=== PATIENT | female | born 1950 | race Caucasian/White ===

== ENCOUNTER 2017-09-25 14:53 | Inpatient (IN) | payer MEDICARE ==
[~2017-09-25] VITALS: Ht 160 cm; Wt 49.2 kg
[2017-09-25] MEDS ORDERED: METHYLPREDNISOLONE SOD SUCC 125 MG/2ML VIAL IV ONE (15:15)
[2017-09-25] MEDS ORDERED: DIPHENHYDRAMINE HCL INJ 50 MG/ML VIAL IV PRN (15:15)
[2017-09-25 16:26] LABS: BASOPHILS # (AUTO) 0.1 (0.0-0.1); BASOPHILS % 0.4 % (0.0-1.0); EOSINOPHILS # (AUTO) 0.2 (0.0-0.4); EOSINOPHILS % 0.7 % (0.0-6.0); HEMATOCRIT 38.2 % (34.2-44.1); HEMOGLOBIN 12.6 g/dL (12.0-16.0); LYMPHOCYTES % 65.6 % (18.0-39.1); MEAN CORPUSCULAR HEMOGLOBIN 29.4 pg (28-32); MEAN CORPUSCULAR VOLUME 89.3 fL (81-99); MONOCYTES # (AUTO) 0.8 (0.2-0.8); MONOCYTES % 3.5 % (4.4-11.3); NEUTROPHILS # (AUTO) 6.3 (2.1-6.9); NEUTROPHILS % 29.5 % (38.7-80.0); PLATELET COUNT 380 x10e3/uL (140-360); RED BLOOD COUNT 4.28 x10e6/uL (3.6-5.1); RED CELL DISTRIBUTION WIDTH 12.6 % (11.7-14.4)
[2017-09-25] MEDS ORDERED: MORPHINE SULFATE 2 MG/ML SYR IV STA ×3 (16:28→21:06)
[2017-09-25 16:37] LABS: INR 1.05; PROTHROMBIN TIME 12.9 seconds (11.9-14.5)
[2017-09-25 16:38] LABS: PARTIAL THROMBOPLASTIN TIME 24.7 seconds (23.8-35.5)
[2017-09-25 16:47] LABS: ALANINE AMINOTRANSFERASE 8 IU/L (0-55); ALBUMIN 3.9 g/dL (3.5-5.0); ALBUMIN/GLOBULIN RATIO 1.4 (0.8-2.0); ALKALINE PHOSPHATASE 52 IU/L (40-150); ANION GAP 17.6 mmol/L (8-16); BLOOD UREA NITROGEN 12 mg/dL (7-26); BUN/CREATININE RATIO 11 (6-25); CALCIUM 9.1 mg/dL (8.4-10.2); CARBON DIOXIDE 18 mmol/L (22-29); CHLORIDE 99 mmol/L (98-107); CREATINE KINASE 47 IU/L (29-168); CREATININE, SERUM 1.09 mg/dL (0.57-1.11); EST GLOMERULAR FILTRATION RATE 50 ML/MIN (60-); GLUCOSE 114 mg/dL (74-118); POTASSIUM 3.6 mmol/L (3.5-5.1); SODIUM 131 mmol/L (136-145)
[2017-09-25] MEDS ORDERED: MORPHINE SULFATE 4 MG/ML SYR IV ONE (17:00)
--- NOTE | 2017-09-25 17:01 | Diagnostic Imaging Report ---
EXAMINATION: PA and lateral views of the chest. COMPARISON: None CLINICAL HISTORY: Right lung upper lobe wheezing DISCUSSION: Lines/tubes: None. Lungs: The lungs are well inflated and clear. There is no evidence of pneumonia or pulmonary edema. Pleura: There is no pleural effusion or pneumothorax. Heart and mediastinum: Cardiomediastinal silhouette is unremarkable. Pulmonary vasculature is normal. Bones and soft tissues: No acute bony abnormalities. Degenerative changes in the thoracic spine IMPRESSION: No acute cardiopulmonary abnormalities. Signed by: Dr. Pavan Khalil M.D. on 09/25/2017 4:58 PM
[2017-09-25 17:06] LABS: THYROID STIMULATING HORMONE 0.973 uIU/mL (0.350-4.940)
[2017-09-25 17:44] LABS: EOSINOPHILS % (MANUAL) 1 % (0-7); LYMPHOCYTES % (MANUAL) 62 % (19-48); MONOCYTES % (MANUAL) 3 % (3.4-9.0); NEUTROPHILS % (MANUAL) 33 % (40-74); PLATELET ESTIMATE ADEQUATE; PLATELET MORPHOLOGY COMMENT NORMAL; RBC MORPHOLOGY COMMENT NORMAL
[2017-09-25] MEDS ORDERED: SODIUM CHLORIDE 0.9% 1000ML 1,000 ML IV SCH (19:15)
[2017-09-25] MEDS ORDERED: DIPHENHYDRAMINE HCL INJ 50 MG/ML VIAL IV ONE (19:15)
[2017-09-25 19:57] LABS: BILIRUBIN,URINE 1+ (NEGATIVE); CLARITY,URINE HAZY (CLEAR); COLOR,URINE YELLOW (YELLOW); KETONES,URINE NEGATIVE (NEGATIVE); LEUKOCYTE ESTERASE ,URINE TRACE (NEGATIVE); PROTEIN,URINE DIPSTICK NEGATIVE (NEGATIVE); URINE UROBILINOGEN 0.2 mg/dL (0.2 - 1)
[2017-09-25 20:00] LABS: NITRITE,URINE POSITIVE (NEGATIVE)
[2017-09-25] MEDS ORDERED: SODIUM CHLORIDE 0.9% 500ML 500 ML IV ONE (20:00)
[2017-09-25 20:15] LABS: BACTERIA,URINE MANY /HPF; EPITHELIAL CELLS,URINE FEW /LPF
--- NOTE | 2017-09-25 20:23 | Diagnostic Imaging Report ---
EXAM: CT CHEST W INDICATION: Lump on neck, firm nodule right upper apex concerning for [place] tumor COMPARISON: None TECHNIQUE: Multidetector CT scanning of the chest was performed. Coronal and sagittal multiplanar reformations were obtained. Routine protocol performed. IV Contrast: 100 cc Isovue-370 CTDIvol has been reviewed. It is below the limits set by the Radiation Protocol Committee (RPC). FINDINGS: LUNGS AND AIRWAYS: The trachea and major bronchi are unremarkable. No consolidations or edema. Mild paraseptal emphysematous changes at the lung apices. PLEURA: No effusions or pneumothorax. HEART, MEDIASTINUM, VESSELS: The heart is within normal size limits. No abnormal pericardial effusion. No thoracic aortic aneurysm. No mediastinal mass or lymphadenopathy. UPPER ABDOMEN: Cholecystectomy. MUSCULOSKELETAL: No acute findings. IMPRESSION: No evidence of a Pancoast tumor. If this is a palpable superficial abnormality, consider ultrasound for further evaluation or perhaps if this is higher up on the neck and out of field of view, consider CT of the neck with palpable marker. Signed by: Dr. Lorena Cartwright M.D. on 09/25/2017 8:19 PM
[2017-09-25] MEDS ORDERED: MORPHINE SULFATE 2 MG/ML SYR IV PRN (20:45)
--- OUTSIDE RECORDS SUMMARY | 2017-09-25 20:56 | XMS REPORT ---
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 Allergies, Adverse Reactions, Alerts This patient has no known allergies or adverse reactions. Medications This patient has no known medications. Results Test Description Test Time Test Comments Text Results Atomic Results Result Comments CHEST 2 VIEWS [facility] [address] [id number] Patient Name: CASSIDY DAVIS MR #: [id number] : 1950 Age/Sex: 67/F Req # : [id number] Adm Physician: Ordered by: KAREN NGO [employer]ING Report #: [id number] Location: ER Room/Bed: Procedure: [id number] 0019 DX/CHEST 2 VIEWS Exam Date: 09/25/17 Exam Time : 1635 REPORT STATUS: Signed EXAMINATION: PA and lateral views of the chest. COMPARISON: None CLINICAL HISTORY: Right lung upper lobe wheezing DISCUSSION: Lines/tubes: None. Lungs: The lungs are well inflated and clear. There is no evidence of pneumonia or pulmonary edema. Pleura: There is no pleural effusion or pneumothorax. Heart and mediastinum: Cardiomediastinal silhouette is unremarkable. Pulmonary vasculature is normal. Bones and soft tissues: No acute bony abnormalities. Degenerative changes in the thoracic spine IMPRESSION: No acute cardiopulmonary abnormalities. Signed by: Dr. Haydee Khalil M.D. on 09/25/2017 4:58 PM Dictated By: HAYDEE KHALIL MD 57 Transcribed By : SELVIN on 09/25/171657 COPY TO: KAREN NGO [employer] CT [address] [address] Patient Name: CASSIDY DAVIS MR #: [id number] : 1950 Age/Sex: 67/F Req # : [id number] Adm Physician: Ordered by: KAREN NGO NP Report #: [id number] Location: ER Room/Bed: Procedure: [id number] 0014 CT/CT CHEST W Exam Date: 09/25/17 Exam Time: 1935 REPORT STATUS: Signed EXAM: CT CHEST W INDICATION: Lump on neck , firm nodule right upper apex concerning for [place] tumor COMPARISON: None TECHNIQUE: Multidetector CT scanning of the chest was performed. Coronal and sagittal multiplanar reformations were obtained. Routine protocol performed. IV Contrast: 100 cc Isovue-370 CTDIvol has been reviewed. It is below the limits set by the Radiation Protocol Committee (RPC). FINDINGS : LUNGS AND AIRWAYS: The trachea and major bronchi are unremarkable. No consolidations or edema. Mild paraseptal emphysematous changes at the lung apices. PLEURA: No effusions or pneumothorax. HEART, MEDIASTINUM, VESSELS: The heart is within normal size limits. No abnormal pericardial effusion. No thoracic aortic aneurysm. No mediastinal mass or lymphadenopathy. UPPER ABDOMEN: Cholecystectomy. MUSCULOSKELETAL: No acute findings. IMPRESSION: No evidence of a Pancoast tumor. If this is a palpable superficial abnormality, consider ultrasound for further evaluation or perhaps if this is higher up on the neck and out of field of view, consider CT of the neck with palpable marker. Signed by: Dr. Fabiola Gonzalez M.D. on 09/25/2017 8:19 PM Dictated By: FABIOLA GONZALEZ MD 18 Transcribed By : SELVIN on 09/25/172018 COPY TO: KAREN NGO NP
[2017-09-25] MEDS ORDERED: RANEXA500 MG PO (21:23)
[2017-09-25] MEDS ORDERED: METFORMIN HCL500 MG PO (21:23)
[2017-09-25] MEDS ORDERED: DICYCLOMINE HCL20 MG PO (21:32)
[2017-09-25] MEDS ORDERED: PANTOPRAZOLE SO40 MG PO (21:32)
[2017-09-25] MEDS ORDERED: SPIRIVA18 MCG INH (21:32)
[2017-09-25] MEDS ORDERED: ISOSORBIDE MONO30 MG PO (21:32)
[2017-09-25] MEDS ORDERED: NITROGLYCERIN0.4 MG SL (21:32)
[2017-09-25] MEDS ORDERED: VENLAFAXINE H37.5 M2 PO (21:32)
[2017-09-25] MEDS ORDERED: FLUTI (21:32)
[2017-09-25] MEDS ORDERED: METOPROLOL TART25 MG PO (21:32)
[2017-09-25] MEDS ORDERED: SYMBICORT 16010.2 GM (21:32)
[2017-09-25] MEDS ORDERED: ATORVASTATIN CA20 MG PO (21:32)
[2017-09-25] MEDS ORDERED: LEVOTHYROXINE75 MCG PO (21:32)
[2017-09-25] MEDS ORDERED: TOPIRAMATE100 MG PO (21:32)
[2017-09-25 22:17] VITALS: BP 141/71
[2017-09-25] MEDS ORDERED: NITROGLYCERIN 0.4 MG SUBL SL SCH (23:30)
[2017-09-26] VITALS (8 sets, daily range): BP systolic 97–159; BP diastolic 55–78
[2017-09-26] MEDS: TRAZODONE HCL 50 MG TAB PO PRN (00:46)
[2017-09-26] MEDS ORDERED: SODIUM CHLORIDE 0.9% 50ML 50 ML ONE ×2 (01:26→19:36)
[2017-09-26] MEDS ORDERED: IOPAMIDOL 370 MG/ML 200 ML INFUS..BTL INJ ONE ×2 (01:27→19:37)
[2017-09-26 06:08] LABS: BASOPHILS % 0.1 % (0.0-1.0); HEMOGLOBIN 9.9 g/dL (12.0-16.0); LYMPHOCYTES # (AUTO) 7.4 (1.0-3.2); LYMPHOCYTES % 50.6 % (18.0-39.1); MEAN CORPUSCULAR HEMOGLOBIN 29.8 pg (28-32); MEAN CORPUSCULAR HGB CONC 34.1 g/dL (31-35); MEAN CORPUSCULAR VOLUME 87.3 fL (81-99); MONOCYTES # (AUTO) 0.7 (0.2-0.8); MONOCYTES % 5.1 % (4.4-11.3); NEUTROPHILS # (AUTO) 6.4 (2.1-6.9); NEUTROPHILS % 43.7 % (38.7-80.0); PLATELET COUNT 243 x10e3/uL (140-360); RED BLOOD COUNT 3.32 x10e6/uL (3.6-5.1); RED CELL DISTRIBUTION WIDTH 12.6 % (11.7-14.4)
[2017-09-26 06:29] LABS: ALANINE AMINOTRANSFERASE 7 IU/L (0-55); ALBUMIN 3.2 g/dL (3.5-5.0); ALBUMIN/GLOBULIN RATIO 1.7 (0.8-2.0); ALKALINE PHOSPHATASE 46 IU/L (40-150); BLOOD UREA NITROGEN 13 mg/dL (7-26); BUN/CREATININE RATIO 14 (6-25); CALCIUM 8.1 mg/dL (8.4-10.2); CARBON DIOXIDE 17 mmol/L (22-29); CHLORIDE 106 mmol/L (98-107); CREATININE, SERUM 0.91 mg/dL (0.57-1.11); EST GLOMERULAR FILTRATION RATE > 60 ML/MIN (60-); GLUCOSE 86 mg/dL (74-118); SODIUM 133 mmol/L (136-145)
[2017-09-26] MEDS: ONDANSETRON HCL INJ 2 MG/ML VIAL IV PRN ×2 (07:23→14:14)
[2017-09-26] MEDS: MORPHINE SULFATE 2 MG/ML SYR IV PRN ×6 (07:23→19:31)
[2017-09-26] MEDS ORDERED: DEXTROSE 50% SYRINGE 50 ML IV PRN (08:45)
[2017-09-26] MEDS: BUDESONIDE/FORMOTEROL 160/4.5MCG INHALER INH SCH (09:00)
[2017-09-26] MEDS ORDERED: VENLAFAXINE HCL 37.5 MG PO SCH (09:00)
[2017-09-26] MEDS ORDERED: PANTOPRAZOLE SOD 40 MG TABEC PO SCH (09:00)
[2017-09-26] MEDS: TIOTROPIUM 18 MCG INH POWDER INH SCH (09:00)
[2017-09-26] MEDS ORDERED: VENLAFAXINE HCL 37.5 MG TAB PO SCH (09:00)
[2017-09-26] MEDS: DICYCLOMINE HCL 20 MG TAB PO SCH ×3 (09:00→22:49)
[2017-09-26] MEDS: METOPROLOL TARTRATE 25 MG TAB PO SCH ×2 (09:01→16:50)
[2017-09-26] MEDS: RANOLAZINE 500 MG TABSR PO SCH ×2 (09:01→16:51)
[2017-09-26] MEDS: VENLAFAXINE HCL 37.5MG XR CAP PO SCH (09:01)
[2017-09-26] MEDS: ISOSORBIDE MONONITRATE 30 MG TAB CR PO SCH (09:01)
[2017-09-26] MEDS: LEVOTHYROXINE SODIUM 75 MCG TAB PO SCH (09:02)
[2017-09-26] MEDS: TOPIRAMATE 100 MG TAB PO SCH ×2 (09:02→16:51)
[2017-09-26 11:12] LABS: BAND NEUTROPHILS % (MANUAL) 1 %; LYMPHOCYTES % (MANUAL) 51 % (19-48); MONOCYTES % (MANUAL) 2 % (3.4-9.0); NEUTROPHILS % (MANUAL) 46 % (40-74); PLATELET ESTIMATE ADEQUATE; PLATELET MORPHOLOGY COMMENT NORMAL; RBC MORPHOLOGY COMMENT NORMAL
[2017-09-26] MEDS ORDERED: CEFTRIAXONE SOD 1 GM/NS 50 ML 50 ML IV SCH (12:00)
[2017-09-26] MEDS: AMLODIPINE BESYLATE 10 MG TAB PO SCH (12:30)
[2017-09-26] MEDS: CEFTRIAXONE SOD 1 GM VIAL IV SCH (12:48)
[2017-09-26] MEDS: INSULIN REGULAR, HUMAN 100 UNIT/1 ML 3ML VIAL SQ SCH ×3 (14:17→22:50)
--- NOTE | 2017-09-26 15:23 | History and Physical ---
PRIMARY CARE PROVIDER: Dr. Mary Kate Lutz. CHIEF COMPLAINT: Right neck pain, dysphagia, unable to keep food down, and a 60-pound weight loss. HISTORY OF PRESENT ILLNESS: Ms. Ramos is a 67-year-old lady who presents with 60 pounds of weight loss in the last 3 months along with enlarging painful right neck mass at the base of the neck with pain radiating up into the right side of her head. She feels like she is choking as a result of this. There seems to be pressure. She is having difficulty swallowing. She does have a history of esophageal strictures and has had previous dilations by GI and she has noted 60 pounds of weight loss in the last 3 to 4 months. REVIEW OF SYSTEMS: She denies fever, chills. She has had significant weight loss. She denies sinus congestion or sore throat. She denies chest pain or palpitations. She denies shortness of breath, wheezing, or cough. She has right neck pain radiating to the head. She denies abdominal pain, nausea, vomiting, or melena. She denies dysuria or flank pain. She denies rash or pruritus. She denies joint pain or swelling. She has a headache and has had some vertigo. She denies loss of consciousness. She denies depression, agitation, homicide or suicidal ideation. She is a smoker. PAST MEDICAL HISTORY: Significant for longstanding hypertension, type 2 diabetes, coronary artery disease, COPD, and depression. MEDICATIONS: Include; 1. Lipitor 40 mg at bedtime. 2. Symbicort inhaler twice daily. 3. Bentyl 20 mg 3 times a day. 4. Imdur 60 mg p.o. daily. 5. Levothyroxine 75 mcg daily. 6. Metoprolol 25 mg twice daily. 7. Nitroglycerin as needed. 8. Protonix 40 mg twice a day before meals. 9. Ranexa 1000 mg twice daily. 10. Spiriva 1 cap inhaled daily. 11. Topamax 100 mg twice daily. 12. Venlafaxine ER 37.5 mg daily. 13. Metformin 500 mg twice a day. ALLERGIES: SHE HAS A STATED ALLERGY TO LATEX, NEFAZODONE, AND IODINE CONTRAST ORAL AND IV. FAMILY HISTORY: Significant for hypertension and diabetes. SOCIAL HISTORY: The patient is . Vincentian is her primary language. She is a current daily smoker. She drinks rarely. She does not use illegal drugs and she is generally independently functioning. PHYSICAL EXAM: PSYCHIATRIC: She is alert and oriented times 3 with normal mood and affect. CONSTITUTIONAL: She has a normal body habitus. She is in no acute distress. VITAL SIGNS: Blood pressure 159/78, pulse 70 and regular, respiratory rate 12, O2 sat 100% on room air, temperature 96.3. HEENT: Her head is atraumatic. Her eyes are anicteric with clear conjunctivae. Ears and nares are without erythema or discharge. Oropharynx is clear. NECK: Supple. She has a palpable firm fixed tender mass at the base of the right neck in the supraclavicular fossa. It is approximately 3 cm in diameter. CARDIOVASCULAR: Her heart has a regular rate rhythm without murmur or extra heart sound. She has no carotid bruits. She has no peripheral edema. She has palpable dorsal pedal pulses. RESPIRATORY: Lungs are clear to auscultation and percussion with normal respiratory effort. GASTROINTESTINAL: Her abdomen is soft without organomegaly, masses, or tenderness. She has normal bowel sounds present. CUTANEOUS: Her skin is warm and dry to touch with no rash or skin breakdown. MUSCULOSKELETAL: Her joints are in normal alignment without erythema or swelling. She has no calf tenderness. NEUROLOGIC: Exam is nonfocal with intact cranial nerves and no motor or sensory deficits. DIAGNOSTIC STUDIES: Chest x-ray and CT chest both have no evidence of disease. Her UA has 6 to 10 white cells with many bacteria. TSH is 0.973. Troponin less than 0.001. BNP 34.9. Chemistry profile shows normal electrolytes except for sodium of 131, potassium 3.6, chloride 99, CO2 of 18, glucose 114, creatinine 1.09, BUN 12 for a GFR of 50. Calcium is 9.1. After overnight hydration, electrolytes are improved. Sodium is 133. Her CO2 is 17. Creatinine is 0.91, BUN 13 for a normal GFR. Glucose is 86. Calcium 8.1. Transaminases, bilirubin and alk phos are normal. CBC shows a white count of 21.2 with 30% neutrophils, 67% lymphocytes, and 4% monocytes. Hemoglobin 12.6, hematocrit 38.2, and platelet count 380,000. Again after hydration overnight, her CBC shows a white count of 14.6 with 46% neutrophils, 1% band forms, 51% lymphocytes, 2% monocytes, hemoglobin 9.9, hematocrit 29.0, which is a significant drop and platelet count 243,000. Coags are normal. IMPRESSION AND PLAN 1. Neck mass with 60-pound weight loss. We will obtain CT scan of the neck with and without contrast and we will consult ear, nose, and throat as well as hematology-oncology for further evaluation. 2. Leukocytosis with lymphocytic predominance and anemia that is normocytic. We will check iron studies, retic count, and hematology has been consulted. 3. Urinary tract infection. We will start intravenous Rocephin empirically. 4. Hyponatremia. The patient received IV steroids. We will monitor her sodium level. 5. Hypertension that is uncontrolled with coronary artery disease. We will continue the patient's metoprolol and Imdur and add Norvasc for better blood pressure control. 6. Type 2 diabetes. We will hold metformin in view of the contrast studies and use sliding scale insulin for now. 1. Chronic obstructive pulmonary disease. Patient will receive routine neb treatments. 2. For prophylaxis, the patient is on sequential compressive devices for deep venous thrombosis prophylaxis and Protonix for gastrointestinal prophylaxis. Sixty minutes were spent on this history and physical. Job#: [id number] JACQUELINE
[2017-09-26] MEDS ORDERED: METHYLPREDNISOLONE SOD SUCC 125 MG/2ML VIAL IV ONE (16:30)
[2017-09-26] MEDS ORDERED: DIPHENHYDRAMINE HCL 25 MG CAP PO ONE (16:30)
[2017-09-26] MEDS: PANTOPRAZOLE SOD 40 MG TABEC PO SCH (16:30)
[2017-09-26] MEDS ORDERED: DIPHENHYDRAMINE HCL INJ 50 MG/ML VIAL IV ONE (19:30)
--- NOTE | 2017-09-26 20:42 | Diagnostic Imaging Report ---
History: Nodule in the right upper apex, concern for pancoast tumor Comparison studies: None Technique: Axial, coronal and sagittal images from the skull base to the thoracic inlet. Coronal and sagittal images reconstructed from the axial data. Intravenous contrast: 100 cc of Omnipaque 300. Findings: Airway: Patent. Soft tissues: No abnormalities. Masses: None. Lymph nodes: No radiographically significant adenopathy. Vessels: Arteries and veins are patent. Glands (thyroid, parotid and submandibular): Normal in size and symmetric. No masses. Orbits: No abnormalities. Paranasal sinuses: Clear. Temporal bones: No abnormalities. Skull base and facial bones: Intact. Cervical spine: No abnormalities IMPRESSION: 1. No abnormalities. 2. No Pancoast tumor. Signed by: Dr. Mike Moore M.D. on 09/26/2017 8:38 PM
[2017-09-26] MEDS: ATORVASTATIN 20 MG TAB PO SCH (22:49)
[2017-09-27] VITALS (7 sets, daily range): BP systolic 104–138; BP diastolic 56–73
[2017-09-27] MEDS: CEFTRIAXONE SOD 1 GM VIAL IV SCH ×2 (01:57→12:19)
[2017-09-27 06:50] LABS: BASOPHILS % 0.2 % (0.0-1.0); HEMATOCRIT 30.8 % (34.2-44.1); HEMOGLOBIN 10.7 g/dL (12.0-16.0); LYMPHOCYTES # (AUTO) 8.7 (1.0-3.2); LYMPHOCYTES % 50.6 % (18.0-39.1); MEAN CORPUSCULAR HEMOGLOBIN 30.5 pg (28-32); MEAN CORPUSCULAR HGB CONC 34.7 g/dL (31-35); MEAN CORPUSCULAR VOLUME 87.7 fL (81-99); MONOCYTES # (AUTO) 0.6 (0.2-0.8); MONOCYTES % 3.3 % (4.4-11.3); NEUTROPHILS # (AUTO) 7.8 (2.1-6.9); NEUTROPHILS % 45.4 % (38.7-80.0); PLATELET COUNT 279 x10e3/uL (140-360); RED BLOOD COUNT 3.51 x10e6/uL (3.6-5.1); RED CELL DISTRIBUTION WIDTH 12.9 % (11.7-14.4)
[2017-09-27 07:25] LABS: % IRON SATURATION 29 % (15-50); IRON 71 ug/dL (50-170); TOTAL IRON BINDING CAPACITY 248 ug/dL (261-478); TRANSFERRIN 177 mg/dL (180-382)
[2017-09-27 07:30] LABS: ANION GAP 11.8 mmol/L (8-16); BLOOD UREA NITROGEN 8 mg/dL (7-26); BUN/CREATININE RATIO 10 (6-25); CALCIUM 8.7 mg/dL (8.4-10.2); CARBON DIOXIDE 22 mmol/L (22-29); CHLORIDE 105 mmol/L (98-107); EST GLOMERULAR FILTRATION RATE > 60 ML/MIN (60-); GLUCOSE 86 mg/dL (74-118); POTASSIUM 3.8 mmol/L (3.5-5.1); SODIUM 135 mmol/L (136-145)
[2017-09-27] MEDS: INSULIN REGULAR, HUMAN 100 UNIT/1 ML 3ML VIAL SQ SCH ×4 (07:30→20:21)
[2017-09-27] MEDS: PANTOPRAZOLE SOD 40 MG TABEC PO SCH ×2 (07:30→17:02)
[2017-09-27] MEDS: MORPHINE SULFATE 2 MG/ML SYR IV PRN ×3 (07:35→20:15)
[2017-09-27 08:29] LABS: FOLATE 5.5 ng/mL (7.0-15.4)
[2017-09-27] MEDS: BUDESONIDE/FORMOTEROL 160/4.5MCG INHALER INH SCH (09:00)
[2017-09-27] MEDS: METOPROLOL TARTRATE 25 MG TAB PO SCH ×2 (09:00→17:02)
[2017-09-27] MEDS: VENLAFAXINE HCL 37.5MG XR CAP PO SCH (09:00)
[2017-09-27] MEDS: LEVOTHYROXINE SODIUM 75 MCG TAB PO SCH (09:00)
[2017-09-27] MEDS: ISOSORBIDE MONONITRATE 30 MG TAB CR PO SCH (09:00)
[2017-09-27] MEDS: TIOTROPIUM 18 MCG INH POWDER INH SCH (09:00)
[2017-09-27] MEDS: DICYCLOMINE HCL 20 MG TAB PO SCH ×3 (09:00→20:15)
[2017-09-27] MEDS: TOPIRAMATE 100 MG TAB PO SCH ×2 (09:00→17:02)
[2017-09-27] MEDS: AMLODIPINE BESYLATE 10 MG TAB PO SCH (09:00)
[2017-09-27] MEDS: RANOLAZINE 500 MG TABSR PO SCH ×2 (09:00→17:02)
--- NOTE | 2017-09-27 10:38 | Consultation ---
DATE OF CONSULTATION: September 27, 2017 HOSPITAL CONSULTATION HISTORY OF PRESENT ILLNESS: I was kindly asked to see this 67-year-old woman for evaluation of neck mass. The patient presented with a 60-pound weight loss over the last 3 months, and a progressively enlarging right-sided neck mass with pain radiating to the right side of her head. She has been unable to swallow because of pain radiating from this region. She has a history of esophageal stricture, which require esophageal dilation approximately 1 time per year. She reports these symptoms are significantly different than her previous episodes of esophageal stricture. She reports in February of 2017, she first noticed the neck mass and describes it as approximately the size of her pinky fingernail, and has slowly grown in size. She reports generalized aches and pains, and "pains in my bones". Also, reports a sensation of lightheadedness, but denies ear fullness, hearing loss or tinnitus. Her workup to date with CT scan of the chest and neck showed no evidence of mass lesion. Her history of present illness, past medical history and past surgical history was reviewed in detail in the chart. PHYSICAL EXAMINATION HEENT: The tympanic membranes and external auditory canals are unremarkable. Intranasal examination is normal. Oral cavity examination is normal. Posterior pharyngeal wall is unremarkable. Anterior neck bilaterally shows no evidence of adenopathy. There is a roughly 2.5 to 3 cm area of tenderness and possible muscle spasm at the level of the trapezius near the clavicle in the right posterior neck. ASSESSMENT 1. Unlikely that the right neck mass is the etiology for the 60-pound weight loss given that she has a normal computerized tomography scan of the chest and neck. 2. Unclear etiology for the palpable region in the right neck with no anatomic correlation to computerized tomography scan of the neck and chest. Given her symptoms of pain, this may be an area of muscle spasm or small neuroma not being able to seen on computerized tomography. PLAN 1. Ultrasound of the neck with consideration of ultrasound-guided needle aspiration if a mass can be identified on ultrasound. 2. Workup of this neck mass can be performed as an outpatient when she is cleared from other physicians on the case. She is also cleared for discharge from otolaryngology standpoint. Job#: [id number] RI
[2017-09-27] MEDS: ONDANSETRON HCL INJ 2 MG/ML VIAL IV PRN (12:20)
[2017-09-27] MEDS: ALBUTEROL/IPRATROPIUM 3 ML NEB NEB SCH ×2 (13:22→20:30)
--- NOTE | 2017-09-27 16:04 | Diagnostic Imaging Report ---
PROCEDURE: SOFT TISSUE HEAD/NECK US COMPARISON: CT soft tissue neck 09/26/2017. CT chest 09/25/2017. INDICATIONS:RIGHT INFERIOR NECK MASS AT JUNCTION TRAPEZIUS AND CLAVICLE TECHNIQUE: Transverse and longitudinal griffin-scale sonographic images of the bilateral neck with focus at the right inferior neck at the junction of the clavicle and trapezius. FINDINGS: The area of palpation in the right neck corresponds to a well corticated/calcified lesion. When reviewing CT neck and CT chest, this corresponds with a prominent right cervical rib. There is also a left cervical rib which is not as prominent and does not extend as far. CONCLUSION: Area of palpation corresponds with a cervical rib. Dictated by: Bam Warren M.D. on 09/27/2017 at 16:04 Electronically approved by: Bam Warren M.D. on 09/27/2017 at 16:04 Dictated by: Bam Warren M.D. on 09/27/2017 at 16:05 Electronically approved by: Bam Warren M.D. on 09/27/2017 at 16:05
--- NOTE | 2017-09-27 16:36 | Operative Report ---
DATE OF PROCEDURE: September 27, 2017 REFERRING PHYSICIAN: Dr. Sherrie Mcmahon PROCEDURE PERFORMED: Esophagogastroduodenoscopy with esophageal dilatation and biopsies. INDICATIONS FOR PROCEDURE: Dysphagia to solids, weight loss. MEDICATION: Patient was done under MAC. Please see anesthesiologist's note. PROCEDURE: With the patient in the left lateral decubitus position, the flexible fiberoptic Olympus gastroscope was introduced into the esophagus under direct visualization without any difficulty. There was some patchy erythema noted in the distal esophagus. A minute nodule was noted at the GE junction, and that was biopsied. The esophagus was dilated to size 54-E[place]ian Young. The scope was then advanced with ease into the stomach, traversing a small hiatal hernia. Mucosa overlying the antrum and the body revealed some patchy intense erythema and mild to moderate edema, and biopsies were obtained and sent to stain for H. pylori. The pylorus was of normal contour and shape. It was intubated with ease, and the scope was advanced all the way to the 2nd portion of the duodenum. The scope was then withdrawn slowly. Mucosa overlying the proximal 2nd portion and the duodenal bulb appeared to be within normal limits. The scope was then withdrawn back into the stomach and retroflexed. Mucosa overlying the fundus and the cardia appeared to be within normal limits. The scope was then straightened out. The stomach was decompressed. Scope was subsequently withdrawn. Patient tolerated the procedure well. IMPRESSION 1. Mild distal esophagitis. 2. Nodule at gastroesophageal junction, biopsied. 3. Esophagus dilated to size 54-E[place]ian Young. 4. Small hiatal hernia. 5. Gastritis, biopsied. Biopsies sent to stain for H. pylori. PLAN: Follow up histology. Continue Protonix 40 mg 1 p.o. a.c. b.i.d. Start GI soft diet. Job#: [id number] cc:SHERRIE MCMAHON MD
[2017-09-27] MEDS ORDERED: PROPOFOL IV EMULSION 10 MG/ML 50 ML VIAL ONE (17:57)
[2017-09-27] MEDS ORDERED: MIDAZOLAM HCL 2 MG/2 ML VIAL ONE (18:20)
[2017-09-27] MEDS: ATORVASTATIN 20 MG TAB PO SCH (20:15)
[2017-09-28] VITALS: BP 117/66
[2017-09-28] MEDS: CEFTRIAXONE SOD 1 GM VIAL IV SCH ×2 (00:57→12:00)
[2017-09-28] MEDS: MORPHINE SULFATE 2 MG/ML SYR IV PRN ×5 (01:03→23:49)
[2017-09-28 04:00] VITALS: BP 141/72
[2017-09-28] MEDS: ALBUTEROL/IPRATROPIUM 3 ML NEB NEB SCH ×3 (07:00→20:20)
[2017-09-28 07:42] VITALS: BP 139/74
[2017-09-28] MEDS: BUDESONIDE/FORMOTEROL 160/4.5MCG INHALER INH SCH (07:44)
[2017-09-28] MEDS: TIOTROPIUM 18 MCG INH POWDER INH SCH (07:44)
[2017-09-28] MEDS: VENLAFAXINE HCL 37.5MG XR CAP PO SCH (08:53)
[2017-09-28] MEDS: DICYCLOMINE HCL 20 MG TAB PO SCH ×3 (08:53→21:44)
[2017-09-28] MEDS: ISOSORBIDE MONONITRATE 30 MG TAB CR PO SCH (08:53)
[2017-09-28] MEDS: METOPROLOL TARTRATE 25 MG TAB PO SCH ×2 (08:53→16:17)
[2017-09-28] MEDS: AMLODIPINE BESYLATE 10 MG TAB PO SCH (08:53)
[2017-09-28] MEDS: PANTOPRAZOLE SOD 40 MG TABEC PO SCH ×2 (08:53→16:16)
[2017-09-28] MEDS: TOPIRAMATE 100 MG TAB PO SCH ×2 (08:54→16:17)
[2017-09-28] MEDS: RANOLAZINE 500 MG TABSR PO SCH ×2 (08:54→16:17)
[2017-09-28] MEDS: ASCORBIC ACID 500 MG TAB PO SCH ×2 (08:54→16:17)
[2017-09-28] MEDS: INSULIN REGULAR, HUMAN 100 UNIT/1 ML 3ML VIAL SQ SCH ×4 (08:54→21:49)
[2017-09-28] MEDS: LEVOTHYROXINE SODIUM 75 MCG TAB PO SCH (08:54)
[2017-09-28 11:17] VITALS: BP 106/58
[2017-09-28] MEDS: ONDANSETRON HCL INJ 2 MG/ML VIAL IV PRN ×3 (11:45→23:49)
[2017-09-28 15:20] VITALS: BP 100/57
[2017-09-28] MEDS ORDERED: LIDOCAINE HCL 1% 2 ML AMP INJ ONE (17:45)
[2017-09-28] MEDS ORDERED: LIDOCAINE 1% 5ML-MPF INJ ONE (18:15)
[2017-09-28 20:00] VITALS: BP 114/69
[2017-09-28] MEDS: ATORVASTATIN 20 MG TAB PO SCH (21:44)
[2017-09-28] MEDS: TRAZODONE HCL 50 MG TAB PO PRN (21:45)
[2017-09-29] VITALS (8 sets, daily range): BP systolic 88–171; BP diastolic 56–83
[2017-09-29] MEDS: CEFTRIAXONE SOD 1 GM VIAL IV SCH ×2 (01:02→12:48)
[2017-09-29] MEDS: MORPHINE SULFATE 2 MG/ML SYR IV PRN ×6 (04:03→23:28)
[2017-09-29] MEDS ORDERED: LIDOCAINE HCL 1% LOCAL INJ 20 ML VIAL INJ NR (06:00)
[2017-09-29] MEDS: ALBUTEROL/IPRATROPIUM 3 ML NEB NEB SCH ×3 (06:00→21:10)
[2017-09-29 06:24] LABS: BASOPHILS % 0.3 % (0.0-1.0); EOSINOPHILS # (AUTO) 0.4 (0.0-0.4); EOSINOPHILS % 3.3 % (0.0-6.0); HEMATOCRIT 34.6 % (34.2-44.1); HEMOGLOBIN 11.8 g/dL (12.0-16.0); LYMPHOCYTES # (AUTO) 7.7 (1.0-3.2); LYMPHOCYTES % 60.8 % (18.0-39.1); MEAN CORPUSCULAR HEMOGLOBIN 30.3 pg (28-32); MEAN CORPUSCULAR HGB CONC 34.1 g/dL (31-35); MEAN CORPUSCULAR VOLUME 88.9 fL (81-99); MONOCYTES # (AUTO) 0.5 (0.2-0.8); MONOCYTES % 3.9 % (4.4-11.3); NEUTROPHILS # (AUTO) 3.9 (2.1-6.9); NEUTROPHILS % 31.2 % (38.7-80.0); PLATELET COUNT 266 x10e3/uL (140-360); RED BLOOD COUNT 3.89 x10e6/uL (3.6-5.1); RED CELL DISTRIBUTION WIDTH 13.2 % (11.7-14.4)
[2017-09-29 07:10] LABS: ANION GAP 12.5 mmol/L (8-16); BLOOD UREA NITROGEN 6 mg/dL (7-26); BUN/CREATININE RATIO 7 (6-25); CALCIUM 9.3 mg/dL (8.4-10.2); CARBON DIOXIDE 25 mmol/L (22-29); CHLORIDE 105 mmol/L (98-107); CREATININE, SERUM 0.88 mg/dL (0.57-1.11); EST GLOMERULAR FILTRATION RATE > 60 ML/MIN (60-); GLUCOSE 87 mg/dL (74-118); MAGNESIUM 1.4 MG/DL (1.3-2.1); PHOSPHORUS 4.6 MG/DL (2.3-4.7); POTASSIUM 3.5 mmol/L (3.5-5.1); SODIUM 139 mmol/L (136-145)
[2017-09-29 07:58] LABS: BLAST CELLS % MANUAL 2; EOSINOPHILS % (MANUAL) 3 % (0-7); LYMPHOCYTES % (MANUAL) 57 % (19-48); MONOCYTES % (MANUAL) 11 % (3.4-9.0); NEUTROPHILS % (MANUAL) 27 % (40-74)
[2017-09-29 07:59] LABS: ANISOCYTOSIS SLIGHT; HYPOCHROMASIA SLIGHT; PLATELET ESTIMATE ADEQUATE; PLATELET MORPHOLOGY COMMENT NORMAL; POIKILOCYTOSIS SLIGHT; RBC MORPHOLOGY COMMENT NORMAL; SMUDGE CELLS FEW
[2017-09-29] MEDS: BUDESONIDE/FORMOTEROL 160/4.5MCG INHALER INH SCH (09:00)
[2017-09-29] MEDS: TIOTROPIUM 18 MCG INH POWDER INH SCH (09:00)
[2017-09-29] MEDS: VENLAFAXINE HCL 37.5MG XR CAP PO SCH (09:16)
[2017-09-29] MEDS: PANTOPRAZOLE SOD 40 MG TABEC PO SCH ×2 (09:16→17:30)
[2017-09-29] MEDS: INSULIN REGULAR, HUMAN 100 UNIT/1 ML 3ML VIAL SQ SCH ×4 (09:16→21:00)
[2017-09-29] MEDS: DICYCLOMINE HCL 20 MG TAB PO SCH ×3 (09:16→20:59)
[2017-09-29] MEDS: ISOSORBIDE MONONITRATE 30 MG TAB CR PO SCH (09:17)
[2017-09-29] MEDS: RANOLAZINE 500 MG TABSR PO SCH ×2 (09:17→17:30)
[2017-09-29] MEDS: METOPROLOL TARTRATE 25 MG TAB PO SCH ×2 (09:17→17:30)
[2017-09-29] MEDS: AMLODIPINE BESYLATE 10 MG TAB PO SCH (09:17)
[2017-09-29] MEDS: LEVOTHYROXINE SODIUM 75 MCG TAB PO SCH (09:17)
[2017-09-29] MEDS: TOPIRAMATE 100 MG TAB PO SCH ×2 (09:18→17:38)
[2017-09-29] MEDS: ASCORBIC ACID 500 MG TAB PO SCH ×2 (09:18→17:38)
[2017-09-29] MEDS: ATORVASTATIN 40 MG TAB PO SCH (20:59)
[2017-09-29] MEDS ORDERED: POLYETHYLENE GLYCOL 3350 17 GM PACK PO PRN (21:45)
[2017-09-29] MEDS ORDERED: MAGNESIUM SULFATE 2GM/50ML 50 ML IV ONE (22:00)
[2017-09-29] MEDS ORDERED: SODIUM CHLORIDE 0.9% 250ML 250 ML ONE (22:28)
[2017-09-30] VITALS (7 sets, daily range): BP systolic 92–125; BP diastolic 57–72
[2017-09-30] MEDS: CEFTRIAXONE SOD 1 GM VIAL IV SCH ×2 (00:53→13:12)
[2017-09-30] MEDS: MORPHINE SULFATE 2 MG/ML SYR IV PRN ×5 (05:06→20:59)
[2017-09-30] MEDS: LEVOTHYROXINE SODIUM 75 MCG TAB PO SCH (05:46)
[2017-09-30] MEDS: ALBUTEROL/IPRATROPIUM 3 ML NEB NEB SCH ×3 (06:00→21:00)
[2017-09-30 07:12] LABS: ALANINE AMINOTRANSFERASE 7 IU/L (0-55); ALBUMIN 3.5 g/dL (3.5-5.0); ALBUMIN/GLOBULIN RATIO 1.5 (0.8-2.0); ALKALINE PHOSPHATASE 36 IU/L (40-150); ANION GAP 12.3 mmol/L (8-16); BLOOD UREA NITROGEN 6 mg/dL (7-26); BUN/CREATININE RATIO 7 (6-25); CALCIUM 9.2 mg/dL (8.4-10.2); CARBON DIOXIDE 26 mmol/L (22-29); CHLORIDE 104 mmol/L (98-107); CREATININE, SERUM 0.87 mg/dL (0.57-1.11); EST GLOMERULAR FILTRATION RATE > 60 ML/MIN (60-); GLUCOSE 81 mg/dL (74-118); MAGNESIUM 2.2 MG/DL (1.3-2.1); POTASSIUM 4.3 mmol/L (3.5-5.1); SODIUM 138 mmol/L (136-145)
[2017-09-30] MEDS: INSULIN REGULAR, HUMAN 100 UNIT/1 ML 3ML VIAL SQ SCH ×4 (07:30→21:00)
[2017-09-30] MEDS: PANTOPRAZOLE SOD 40 MG TABEC PO SCH ×2 (07:59→17:02)
[2017-09-30] MEDS: MAGNESIUM OXIDE 400 MG TAB PO SCH ×2 (09:00→17:00)
[2017-09-30] MEDS: BUDESONIDE/FORMOTEROL 160/4.5MCG INHALER INH SCH (09:00)
[2017-09-30] MEDS: TIOTROPIUM 18 MCG INH POWDER INH SCH (09:00)
[2017-09-30] MEDS: VENLAFAXINE HCL 37.5MG XR CAP PO SCH (09:18)
[2017-09-30] MEDS: DOCUSATE SODIUM 100 MG CAP PO SCH ×2 (09:18→17:02)
[2017-09-30] MEDS: DICYCLOMINE HCL 20 MG TAB PO SCH ×3 (09:18→20:59)
[2017-09-30] MEDS: TOPIRAMATE 100 MG TAB PO SCH ×2 (09:19→17:03)
[2017-09-30] MEDS: ASCORBIC ACID 500 MG TAB PO SCH ×2 (09:19→17:03)
[2017-09-30] MEDS: METOPROLOL TARTRATE 25 MG TAB PO SCH ×2 (12:49→17:00)
[2017-09-30] MEDS: ISOSORBIDE MONONITRATE 30 MG TAB CR PO SCH (12:49)
[2017-09-30] MEDS: AMLODIPINE BESYLATE 10 MG TAB PO SCH (12:50)
[2017-09-30] MEDS: RANOLAZINE 500 MG TABSR PO SCH ×2 (12:50→17:00)
[2017-09-30] MEDS ORDERED: LACTULOSE SYRUP 20 GM/30 ML UDC PO PRN (20:00)
[2017-09-30] MEDS: ATORVASTATIN 40 MG TAB PO SCH (20:59)
[2017-10-01 00:55] VITALS: BP 123/72
[2017-10-01] MEDS: MORPHINE SULFATE 2 MG/ML SYR IV PRN ×4 (01:15→16:49)
[2017-10-01] MEDS: CEFTRIAXONE SOD 1 GM VIAL IV SCH ×2 (01:15→12:22)
[2017-10-01] MEDS: LEVOTHYROXINE SODIUM 75 MCG TAB PO SCH (05:36)
[2017-10-01 06:16] VITALS: BP_SYST 123; BP_SYST 129; BP_DIAS 72; BP_DIAS 76
[2017-10-01 06:28] LABS: BASOPHILS # (AUTO) 0.1 (0.0-0.1); BASOPHILS % 0.5 % (0.0-1.0); EOSINOPHILS # (AUTO) 0.6 (0.0-0.4); EOSINOPHILS % 5.4 % (0.0-6.0); HEMATOCRIT 32.4 % (34.2-44.1); HEMOGLOBIN 10.9 g/dL (12.0-16.0); LYMPHOCYTES # (AUTO) 6.4 (1.0-3.2); MEAN CORPUSCULAR HEMOGLOBIN 30.4 pg (28-32); MEAN CORPUSCULAR HGB CONC 33.6 g/dL (31-35); MEAN CORPUSCULAR VOLUME 90.3 fL (81-99); MONOCYTES # (AUTO) 0.5 (0.2-0.8); MONOCYTES % 4.3 % (4.4-11.3); NEUTROPHILS # (AUTO) 3.5 (2.1-6.9); NEUTROPHILS % 31.4 % (38.7-80.0); PLATELET COUNT 200 x10e3/uL (140-360); RED BLOOD COUNT 3.59 x10e6/uL (3.6-5.1); RED CELL DISTRIBUTION WIDTH 13.1 % (11.7-14.4)
[2017-10-01 07:01] LABS: ANION GAP 11.9 mmol/L (8-16); BLOOD UREA NITROGEN 11 mg/dL (7-26); BUN/CREATININE RATIO 12 (6-25); CALCIUM 9.2 mg/dL (8.4-10.2); CARBON DIOXIDE 24 mmol/L (22-29); CHLORIDE 107 mmol/L (98-107); EST GLOMERULAR FILTRATION RATE > 60 ML/MIN (60-); GLUCOSE 97 mg/dL (74-118); POTASSIUM 3.9 mmol/L (3.5-5.1); SODIUM 139 mmol/L (136-145)
[2017-10-01] MEDS: ALBUTEROL/IPRATROPIUM 3 ML NEB NEB SCH ×3 (07:10→18:00)
[2017-10-01] MEDS: INSULIN REGULAR, HUMAN 100 UNIT/1 ML 3ML VIAL SQ SCH ×3 (07:30→16:26)
[2017-10-01 07:38] LABS: EOSINOPHILS % (MANUAL) 2 % (0-7); LYMPHOCYTES % (MANUAL) 69 % (19-48); MONOCYTES % (MANUAL) 3 % (3.4-9.0); NEUTROPHILS % (MANUAL) 23 % (40-74)
[2017-10-01 07:42] LABS: PLATELET ESTIMATE ADEQUATE; PLATELET MORPHOLOGY COMMENT NORMAL; RBC MORPHOLOGY COMMENT NORMAL
[2017-10-01 08:00] VITALS: BP 98/61
[2017-10-01] MEDS: PANTOPRAZOLE SOD 40 MG TABEC PO SCH ×2 (08:30→16:25)
[2017-10-01] MEDS: DICYCLOMINE HCL 20 MG TAB PO SCH ×2 (08:55→16:00)
[2017-10-01] MEDS: DOCUSATE SODIUM 100 MG CAP PO SCH ×2 (08:55→16:25)
[2017-10-01] MEDS: VENLAFAXINE HCL 37.5MG XR CAP PO SCH (08:55)
[2017-10-01] MEDS: RANOLAZINE 500 MG TABSR PO SCH ×2 (08:56→16:25)
[2017-10-01] MEDS: ASCORBIC ACID 500 MG TAB PO SCH ×2 (08:56→16:25)
[2017-10-01] MEDS: TOPIRAMATE 100 MG TAB PO SCH ×2 (08:56→16:25)
[2017-10-01] MEDS: ISOSORBIDE MONONITRATE 30 MG TAB CR PO SCH (09:00)
[2017-10-01] MEDS: METOPROLOL TARTRATE 25 MG TAB PO SCH ×2 (09:00→16:26)
[2017-10-01] MEDS: AMLODIPINE BESYLATE 10 MG TAB PO SCH (09:00)
[2017-10-01 09:21] VITALS: BP 98/61
[2017-10-01] MEDS: TIOTROPIUM 18 MCG INH POWDER INH SCH (10:52)
[2017-10-01] MEDS: BUDESONIDE/FORMOTEROL 160/4.5MCG INHALER INH SCH (10:52)
[2017-10-01 12:00] VITALS: BP 96/63
[2017-10-01 16:00] VITALS: BP 98/62
--- NOTE | 2017-10-01 16:24 | Consultation ---
DATE OF CONSULTATION: September 27, 2017 Abimbola Ramos is a 67-year-old white female who has been referred to me for evaluation of a right supraclavicular lymph node, weight loss of 60 pounds, anemia and leukocytosis. The patient had presented with weight loss and weakness. Subsequently admitted for further evaluation and treatment. SOCIAL HISTORY: History of smoking. FAMILY HISTORY: Noncontributory. ALLERGIES: REPORTED LATEX, NEFAZODONE, IODINE. MEDICATIONS: At this time. 1. Albuterol. 2. Diphenhydramine. 3. Ondansetron. 4. Morphine. 5. Atorvastatin. 6. . 7. Dicyclomine. 8. Isosorbide. 9. Levothyroxine. 10. Metoprolol. 11. Nitroglycerin. 12. Ranolazine. 13. Tiotropium. 14. Topiramate. 15. Venlafaxine. 16. Trazodone. 17. Protonix. 18. Insulin. 19. Ceftriaxone. 20. Amlodipine. REVIEW OF SYSTEMS: HEENT: Normal. CARDIAC: History of hypertension. RESPIRATORY: History of COPD. GI: Normal. : Normal. MUSCULOSKELETAL: Normal. SKIN AND BREASTS: Normal. NEUROENDOCRINE: History of diabetes. History of hypothyroidism. PHYSICAL EXAMINATION: GENERAL: A rather thin-built female. Right posterior triangle lymph node 2 cm, soft to firm. HEART: Within normal limits. LUNGS: Are clear. BREASTS: Exam normal. ABDOMEN: Obese. No hepatosplenomegaly. RECTAL EXAM: Deferred. CENTRAL NERVOUS SYSTEM: Essentially normal. LABORATORY DATA: Shows a hemoglobin of 10.7, hematocrit 30.8, white count 17,100 with lymphocytosis. Platelets 279,000. Sodium 135, potassium 3.8. Chloride 105, CO2 22, BUN 8, creatinine 0.8. Glucose 86. Bilirubin 0.3, SGOT 7, SGPT 10, alkaline phosphatase 46. IMPRESSION: 1. Anemia of chronic disease. 2. Lymphocytosis. 3. Weight loss of 60 pounds. 4. Hypertension. 5. Hyperlipidemia. 6. Chronic obstructive pulmonary disease. 7. Hypothyroidism. 8. Migraine headaches. 9. Coronary artery disease. 10. Hypoproteinemia. 11. Hypoalbuminemia. 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 13. Diabetes mellitus. 14. History of esophageal strictures. 15. Right posterior triangle neck node. PLAN: Plan is to have a biopsy of the neck node as well as a bone marrow index. Suspicion is very high that this patient may have lymphoma even though the CAT scans have not shown any lymphadenopathy. I will still do a bone marrow. Common variable immune deficiency is also a possibility since she has low immunoglobulins. I will confine myself to hematology only. I have discussed this with Dr. Mcmahon. Thank you very much for allowing me to participate in the management of this patient. On 09/28, the right posterior iliac crest aspirate and biopsy were done. I have been eager to obtain the results of the quantitation of immunoglobulins. The folic acid level in this patient is low at 5.5. B12, however, is reasonable at 323. Even though I have asked for quantitation of immunoglobulins, at the time of this dictation I still do not have the results of this. I will try to have this done at my office eventually as outpatient. The patient is also suggested folate supplement. Job#: [id number] cc:SHRERIE MCMAHON MD
[2017-10-01] MEDS ORDERED: COLACE100 M1 PO (18:48)
[2017-10-01] MEDS ORDERED: EFFEXOR XR 3737.5 MG PO (18:48)
[2017-10-01] MEDS ORDERED: MIRALAX17 GM PO (18:48)
[2017-10-01] MEDS ORDERED: CEFUROXIME250 MG PO (18:48)
[2017-10-01] MEDS ORDERED: ASCORBIC ACID500 MG PO (18:48)
[2017-10-01] MEDS ORDERED: Atorvastatin PO (18:48)
[2017-10-01] MEDS ORDERED: NORVASC10 MG PO (18:48)
[2017-10-01] MEDS ORDERED: ACETAMINOPHEN/CODEINE 300MG - 30MG TAB PO SCH (19:45)
--- NOTE | 2017-10-01 20:04 | Discharge Summary ---
PRIMARY CARE PROVIDER: Dr. Dinorah Lutz. Ms. Ramos is a 67-year-old lady who presented to the emergency department with 60 pounds of weight loss in the last 3 months along with enlarging painful right neck mass at the base of the neck with pain radiating up into the right side of her head. At that time, she felt as though she was choking. As a result of this, there seemed to be pressure. She was having difficulty swallowing. She does have a history of esophageal strictures and has had previous dilations by gastroenterology. PAST MEDICAL HISTORY: Significant for the esophageal strictures as well as longstanding hypertension, type 2 diabetes mellitus, coronary artery disease, COPD and depression. ADMITTING DIAGNOSES 1. Neck mass with 60 pound weight loss. 2. Leukocytosis with lymphocytic predominance and anemia that is normocytic. 3. Urinary tract infection. 4. Hyponatremia. 5. Hypertension that is uncontrolled with coronary artery disease. 6. Type 2 diabetes mellitus. 7. Chronic obstructive pulmonary disease. DISCHARGE DIAGNOSES 1. Neck mass with 60 pound weight loss. 2. Leukocytosis with lymphocytic predominance and anemia that is normocytic. 3. Urinary tract infection. 4. Hyponatremia. 5. Hypertension that is uncontrolled with coronary artery disease. 6. Type 2 diabetes mellitus. 7. Chronic obstructive pulmonary disease. 8. Hypomagnesemia. 9. Leukocytosis with lymphocytic predominance and normocytic anemia. CONSULTING PHYSICIANS: Dr. Armando Matson with oncology, Dr. Raffi Velez with gastroenterology and Dr. Larry Rachel with ENT. On admission, chest x-ray and CT were negative. The UA had 6-10 white cells and many bacteria, which later grew to show Klebsiella pneumoniae. Troponin was less than 0.001. B-natriuretic peptide 34.9. Creatinine 1.09. BUN 12 for a GFR of 50. CBC showed a white blood cell count of 21.2 with 30% neutrophils, 67% lymphocytes and 4% monocytes. Hemoglobin 12.6, hematocrit 38.2 and platelet count 380,000. After hydration, these counts improved. Today, on the day of discharge, sodium 139, potassium 3.9, chloride 107, CO2 of 24, BUN 11, creatinine 0.9, glucose 97, WBCs 10.9, hemoglobin 10.9, hematocrit 32.4, platelets 200,000. Neutrophils 31.4. Magnesium 2.0. Finger stick blood glucose levels 107, 92. A 12-lead EKG had shown normal sinus rhythm. During her stay, the patient had an upper endoscopy by Dr. Velez, which showed mild distal esophagitis, nodule at the gastroesophageal junction which was biopsied. The esophagus was dilated to size 54-[place] Young. Small hiatal hernia. Gastritis which was biopsied. Per Dr. Rachel's consultation note, there was roughly 2.5 to 3 cm area of tenderness and possible muscle spasm at the level of the trapezius near the clavicle in the right posterior neck. Dr. Rachel indicated that it was unlikely that the right neck mass was the etiology for the 60 pound weight loss, given that she has a normal CT scan of the chest and neck. There was unclear etiology for the palpable region in the right neck with no anatomic correlation to computerized tomography. Given her symptoms of pain, may be an area of muscle spasm or small neuroma. The patient underwent right iliac crest bone marrow biopsy as recommended by oncology on September 29. The patient is to follow up with oncology in 2-3 weeks for the bone biopsy results. REVIEW OF SYSTEMS: The patient is still somewhat sore at the right hip; however, she looks much more alert and awake, and feels better today. Her neck pain is currently 2 on a scale of 0-10. No other complaints. PHYSICAL EXAMINATION VITAL SIGNS: Temperature 96.9, heart rate 74, blood pressure 98/61 with a MAP of 73, respiratory rate 16, oxygen saturation 96%. BMI 14.12. Weight 108 pounds. GENERAL: The patient is lying supine in bed in no acute distress. LUNGS: Clear to auscultation, unlabored even respirations. HEENT: Extraocular eye movements intact. NECK: Supple. No lymphadenopathy or thyromegaly. She has a right neck mass. CARDIOVASCULAR: Regular rate and rhythm without murmur. ABDOMEN: Bowel sounds positive, soft, nontender. EXTREMITIES: Without pitting edema. No clubbing, cyanosis or marked swelling. No signs or symptoms of DVT. NEUROLOGIC: GCS 15, nonfocal. DISPOSITION: Home without home health required. No DME. Activity level as tolerated. GI soft diet. Prescriptions will be provided for cefuroxime 500 mg p.o. q.12 h. for 10 days for the Klebsiella pneumonia urinary tract infection. Tylenol No. 4 with codeine 1 to 2 tabs p.o. q.6 h. p.r.n. for pain. Ascorbic acid. Atorvastatin. Colace. MiraLAX. Scripts will be provided. Dictated by: Axel Coto, Acute Care Nurse Practitioner SHERRIE STOUT MD Job#: [id number]
== END 2017-10-01 20:18 | disposition home or self-care (01) | DRG 607 ==
LOC: ER 14:53 → EDBEDREQ 20:48 → ERHOLD 20:53 → IMCU 21:28 → OBSVTOIN 09-26 11:54 → MED/SURG2 09-28 16:10
PROVIDERS: ADMIT Internal Medicine; ATTEND Internal Medicine
PROC: 0DB78ZX Excision of Stomach, Pylorus, Via Natural or Artificial Opening Endoscopic, Diagnostic (ICD-10-PCS; 2017-09-27)
PROC: 0D758ZZ Dilation of Esophagus, Via Natural or Artificial Opening Endoscopic (ICD-10-PCS; principal; 2017-09-27 15:00)
PROC: 0DB48ZX Excision of Esophagogastric Junction, Via Natural or Artificial Opening Endoscopic, Diagnostic (ICD-10-PCS; 2017-09-27 15:00)
PROC: 07DR3ZX Extraction of Iliac Bone Marrow, Percutaneous Approach, Diagnostic (ICD-10-PCS; 2017-09-29)
DX: R22.1 Localized swelling, mass and lump, neck (principal); N39.0 Urinary tract infection, site not specified; E87.1 Hypo-osmolality and hyponatremia; Z68.1 Body mass index [BMI] 19.9 or less, adult; J44.9 Chronic obstructive pulmonary disease, unspecified; R13.10 Dysphagia, unspecified; I11.9 Hypertensive heart disease without heart failure; E77.8 Other disorders of glycoprotein metabolism; J38.7 Other diseases of larynx; D72.829 Elevated white blood cell count, unspecified; E83.42 Hypomagnesemia; K29.70 Gastritis, unspecified, without bleeding; F17.210 Nicotine dependence, cigarettes, uncomplicated; L04.8 Acute lymphadenitis of other sites; E11.9 Type 2 diabetes mellitus without complications; Z88.8 Allergy status to other drugs, medicaments and biological substances; Z91.040 Latex allergy status; Z91.041 Radiographic dye allergy status; D64.9 Anemia, unspecified; I25.10 Atherosclerotic heart disease of native coronary artery without angina pectoris; D72.820 Lymphocytosis (symptomatic); E78.5 Hyperlipidemia, unspecified; E03.9 Hypothyroidism, unspecified; G43.909 Migraine, unspecified, not intractable, without status migrainosus; B96.1 Klebsiella pneumoniae [K. pneumoniae] as the cause of diseases classified elsewhere; R63.6 Underweight; K20.9 Esophagitis, unspecified; K44.9 Diaphragmatic hernia without obstruction or gangrene; I25.2 Old myocardial infarction; M62.838 Other muscle spasm
CPT/HCPCS: 36415; 43239; 43450; 70491; 71046; 71260; 76536; 80048; 80053; 81001; 82550; 82553; 82607; 82746; 82784; 82948; 83540; 83735; 83880; 84100; 84443; 84466; 84484; 85025; 85610; 85730; 87086; 87186; 88305; 88312; 93005; 94640; 96372; 96375; 96376; G0378; J0696; J1200; J2001; J2250; J2270; J2405; J2930; J7030; J7040; J7050; Q9967

== ENCOUNTER 2018-02-22 19:08 | Emergency (ER) | payer MEDICARE ==
[~2018-02-22] VITALS: Ht 312.4 cm; Wt 49.0 kg
[~2018-02-22 19:08] MED LIST: ASCORBIC ACID500 MG PO; ATORVASTATIN CA20 MG PO; Atorvastatin PO; CEFUROXIME250 MG PO; COLACE100 M1 PO; DICYCLOMINE HCL20 MG PO; EFFEXOR XR 3737.5 MG PO; FLUTI; ISOSORBIDE MONO30 MG PO; LEVOTHYROXINE75 MCG PO; METFORMIN HCL500 MG PO; METOPROLOL TART25 MG PO; MIRALAX17 GM PO; NITROGLYCERIN0.4 MG SL; NORVASC10 MG PO; PANTOPRAZOLE SO40 MG PO; RANEXA500 MG PO; SPIRIVA18 MCG INH; SYMBICORT 16010.2 GM; TOPIRAMATE100 MG PO; VENLAFAXINE H37.5 M2 PO
[2018-02-22] MEDS ORDERED: HYDROCODONE/APAP 5MG-325MG TAB PO ONE (20:15)
[2018-02-22 20:59] LABS: BASOPHILS % 0.3 % (0.0-1.0); HEMATOCRIT 34.7 % (34.2-44.1); HEMOGLOBIN 11.9 g/dL (12.0-16.0); LYMPHOCYTES # (AUTO) 0.6 (1.0-3.2); LYMPHOCYTES % 8.5 % (18.0-39.1); MEAN CORPUSCULAR HEMOGLOBIN 32.2 pg (28-32); MEAN CORPUSCULAR HGB CONC 34.3 g/dL (31-35); MONOCYTES # (AUTO) 0.3 (0.2-0.8); MONOCYTES % 3.8 % (4.4-11.3); NEUTROPHILS # (AUTO) 6.2 (2.1-6.9); NEUTROPHILS % 85.9 % (38.7-80.0); PLATELET COUNT 338 x10e3/uL (140-360); RED BLOOD COUNT 3.69 x10e6/uL (3.6-5.1); RED CELL DISTRIBUTION WIDTH 14.6 % (11.7-14.4)
[2018-02-22 21:25] LABS: ALBUMIN 3.6 g/dL (3.5-5.0); ANION GAP 16.3 mmol/L (8-16); CALCIUM 9.9 mg/dL (8.4-10.2); CREATININE, SERUM 0.93 mg/dL (0.57-1.11); POTASSIUM 4.3 mmol/L (3.5-5.1)
[2018-02-22 21:31] LABS: CREATINE KINASE MB 0.5 ng/mL (0-5.0)
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
[2018-02-23] MEDS ORDERED: HEPARIN SOD (PORCINE) 1000 UNIT/ML 10ML MDV INJ ONE ×2 (00:15→06:15)
[2018-02-23] MEDS ORDERED: HEPARIN SOD (PORCINE) 1000 UNIT/ML SDV ONE (00:16)
--- OUTSIDE RECORDS SUMMARY | 2018-04-07 03:35 | XMS REPORT | Continuity of Care Document ---
Author Author [facility] Organization [facility] Address [address] [place] [address] Phone Unavailable Care Team Providers Care Director Systems Name Role Phone SANGEETA CUEVAS MD PCP Advance Directives Directive Response Recorded Date/Time Does the patient have an advance directive? No 09/25/17 5:08pm If yes, is advance directive on file with [facility]? No 09/25/17 5:08pm If not on file with [facility] will patient provide a copy? Yes 09/25/17 8:03pm Do you have a Directive to Physician? No 09/25/17 5:08pm Do you have a Medical Power of Surgery Nurse? No 09/25/17 5:08pm Do you have an out of hospital Do Not Resuscitate Order? No 09/25/17 5:08pm Do you have any special needs we should be aware of? No 09/25/17 5:08pm Do you have a support person here with you today? Yes 09/25/17 5:08pm Did patient receive Notice of Privacy Practices? Yes 09/25/17 5:08pm Did patient receive patient rights and responsibilities? Yes 09/25/17 5:08pm Problems Medical Problem Onset Date Status Leukocytosis Unknown Lymphocytosis Unknown Medications Current Home Medications Medication Dose Units Route Directions Days Qty Instructions Start Date Amlodipine Besylate (Norvasc) 10 Mg Tab 10 Mg Oral Daily 14 Days Ascorbic Acid 500 Mg Tablet 500 Mg Oral Twice A Day 14 Days Atorvastatin 40 Mg Tab 40 Mg Oral Bedtime 14 Days 10/01/17 Atorvastatin Calcium 20 Mg Tablet 40 Mg Oral Bedtime 30 Tab Budesonide/Formoterol Fumarate (Symbicort 160-4.5 Mcg Inhaler) 10.2 Gm Hfa.aer.ad Cefuroxime Axetil (Cefuroxime) 250 Mg Tablet 500 Mg Oral Every 12 Hours 10 Days 20 Tab 10/01/17 Dicyclomine Hcl 20 Mg Tablet 20 Mg Oral Three Times A Day Docusate Sodium (Colace) 100 Mg Capsule 100 Mg Oral Twice A Day 14 Days 10/01/17 Fluti Isosorbide Mononitrate (Isosorbide Mononitrate Er) 30 Mg Tab.er.24h 60 Mg Oral Daily 30 Tab Levothyroxine Sodium 75 Mcg Tablet 75 Mcg Oral Daily 30 Tab Metoprolol Tartrate 25 Mg Tablet 25 Mg Oral Twice A Day Nitroglycerin 0.4 Mg Tab.subl 0.4 Mg Sublingual Every 5 Minutes Pantoprazole Sodium (Protonix) 40 Mg Tablet.dr 40 Mg Oral Twice A Day Polyethylene Glycol 3350 (Miralax) 17 Gm Powd.pack 17 Gm Oral Twice A Day as needed for Constipation 14 Days 10/01/17 Ranolazine (Ranexa) 500 Mg Tabsr 1,000 Mg Oral Twice A Day 60 Tab Tiotropium [place] (Spiriva) 18 Mcg Cap.w.dev 2.5 Mcg Inhalation Topiramate 100 Mg Tablet 100 Mg Oral Twice A Day 30 Tab Venlafaxine Hcl (Venlafaxine Hcl Er) 37.5 Mg Tab.er.24 37.5 Mg Oral Daily 30 Tab Venlafaxine Hcl (Effexor Xr 37.5MG Capcr*) 37.5 Mg Capcr 37.5 Mg Oral Daily 14 Days 10/01/17 Past Home Medications Medication Directions Ordered Status Metformin Hcl 500 Mg Tablet, 500 Mg Oral Twice A Day Discontinued Social History Social History Problem Response Recorded Date/Time Onset Date Status Hx Eating Disorder No 09/26/2017 1:01am Not Applicable Not Applicable Hx Substance Use Disorder No 09/26/2017 1:01am Not Applicable Not Applicable Hx Depression No 09/26/2017 1:01am Not Applicable Not Applicable Hx Substance Use Treatment No 09/26/2017 1:01am Not Applicable Not Applicable Hx Physical Abuse No 09/26/2017 1:01am Not Applicable Not Applicable Smoking Status Start Date Stop Date Current every day smoker Hospital Discharge Instructions No hospital discharge instruction information available. Plan of Care Discharge Date 10/01/17 8:18pm Disposition HOME, SELF-CARE Instructions/Education Provided Lymphadenitis Prescriptions See Medication Section Functional Status Query Response Date Recorded Assistive Devices None September 26, 2017 1:01am Ambulation Ability Independent September 26, 2017 1:01am Toileting Ability Independent October 01, 2017 6:11pm Allergies, Adverse Reactions, Alerts Allergen Type Severity Reaction Status Last Updated Iodinated Contrast- Oral and IV Dye Allergy Severe ANYPHYLAXIS Active Nefazodone Allergy Mild HIVES Active 09/25/17 Latex Allergy Mild Active 09/25/17 Immunizations No immunization information available. Vital Signs Acute Vital Signs Vital Response Date/Time Temperature (Fahrenheit) 97.9 degrees F (97.6 - 99.5) 10/01/2017 4:00pm Pulse Pulse Rate (adult) 69 bpm (60 - 90) 10/01/2017 6:57pm Respiratory Rate 16 bpm (12 - 24) 10/01/2017 6:57pm Blood Pressure 98/62 mm Hg 10/01/2017 4:00pm Height 5 ft 3 in 09/25/2017 3:03pm Weight 108.50 lb 09/29/2017 12:41am Body Mass Index 19.2 kg/m^2 09/29/2017 12:41am Results Laboratory Results Test Name Result Units Flags Reference Collection Date/Time Result Date/ Time Comments White Blood Count 10.98 x10e3/uL H 4.8-10.8 10/01/2017 5:53am 2017 6:37am Red Blood Count 3.59 x10e6/uL L 3.6-5.1 10/01/2017 5:53am 10/01/2017 6: 37am Hemoglobin 10.9 g/dL L 12.0-16.0 10/01/2017 5:53am 10/01/2017 6:37am Hematocrit 32.4 % L 34.2-44.1 10/01/2017 5:53am 10/01/2017 6:37am Mean Corpuscular Volume 90.3 fL 81-99 10/01/2017 5:53am 10/01/2017 6: 37am Mean Corpuscular Hemoglobin 30.4 pg 28-32 10/01/2017 5:53am 10/01/2017 6:37am Mean Corpuscular Hemoglobin Concent 33.6 g/dL 31-35 10/01/2017 5:53am 10/01/2017 6:37am Red Cell Distribution Width 13.1 % 11.7-14.4 10/01/2017 5:532017 6:37am Platelet Count 200 x10e3/uL 140-360 10/01/2017 5:53am 10/01/2017 6: 37am Neutrophils (%) (Auto) 31.4 % L 38.7-80.0 10/01/2017 5:53am 10/01/2017 6 :37am Lymphocytes (%) (Auto) 58.0 % H 18.0-39.1 10/01/2017 5:5310/01/2017 6 :37am Monocytes (%) (Auto) 4.3 % L 4.4-11.3 10/01/2017 5:5310/01/2017 6: 37am Eosinophils (%) (Auto) 5.4 % 0.0-6.0 10/01/2017 5:10/01/2017 6: 37am Basophils (%) (Auto) 0.5 % 0.0-1.0 10/01/2017 5:5310/01/2017 6:37am IM GRANULOCYTES % 0.4 % 0.0-1.0 10/01/2017 5:53am 10/01/2017 6:37am Neutrophils # (Auto) 3.5 2.1-6.9 10/01/2017 5:53am 10/01/2017 6:37am Lymphocytes # (Auto) 6.4 H 1.0-3.2 10/01/2017 5:5310/01/2017 6: 37am Monocytes # (Auto) 0.5 0.2-0.8 10/01/2017 5:53am 10/01/2017 6:37am Eosinophils # (Auto) 0.6 H 0.0-0.4 10/01/2017 5:53am 10/01/2017 6: 37am Basophils # (Auto) 0.1 0.0-0.1 10/01/2017 5:53am 10/01/2017 6:37am Absolute Immature Granulocyte (auto 0.04 x10e3/uL 0-0.1 10/01/2017 5: 53am 10/01/2017 6:37am Differential Total Cells Counted 100 10/01/2017 5:53am 10/01/2017 7 :43am Neutrophils % (Manual) 23 % L 40-74 10/01/2017 5:53am 10/01/2017 7:43am Band Neutrophils % 1 % 09/26/2017 6:00am 09/26/2017 11:12am Lymphocytes % (Manual) 69 % H 19-48 10/01/2017 5:53am 10/01/2017 7:43am Monocytes % (Manual) 3 % L 3.4-9.0 10/01/2017 5:53am 10/01/2017 7:43am Eosinophils % (Manual) 2 % 0-7 10/01/2017 5:53am 10/01/2017 7:43am Reactive Lymphocytes 3 10/01/2017 5:53am 10/01/2017 7:43am Blast Cells % 2 09/29/2017 5:54am 09/29/2017 7:59am Smudge Cells FEW 09/29/2017 5:54am 09/29/2017 7:59am Platelet Estimate ADEQUATE 10/01/2017 5:53am 10/01/2017 7:43am Platelet Morphology Comment NORMAL 10/01/2017 5:53am 10/01/2017 7: 43am Hypochromasia SLIGHT 09/29/2017 5:54am 09/29/2017 7:59am Poikilocytosis SLIGHT 09/29/2017 5:54am 09/29/2017 7:59am Anisocytosis SLIGHT 09/29/2017 5:54am 09/29/2017 7:59am Red Cell Morphology Comment NORMAL 10/01/2017 5:53am 10/01/2017 7: 43am Prothrombin Time 12.9 seconds 11.9-14.5 09/25/2017 4:00pm 09/25/2017 4: 39pm Prothromb Time International Ratio 1.05 09/25/2017 4:00pm 2017 4:39pm Oral Anticoagulant Therapy INR Values: 1. Low Intensity Therapy 1.5 - 2.0 2. Moderate Intensity Therapy 2.0 - 3.0 3. High Intensity Therapy(1) 2.5 - 3.5 4. High Intensity Therapy(2) 3.0 - 4.0 5. Panic Value INR > 5.0 Activated Partial Thromboplast Time 24.7 seconds 23.8-35.5 09/25/2017 4: 00pm 09/25/2017 4:39pm Urine Color YELLOW YELLOW 09/25/2017 6:35pm 09/25/2017 8:01pm Urine Clarity HAZY CLEAR 09/25/2017 6:35pm 09/25/2017 8:01pm Urine Specific [place] 1.020 1.010-1.025 09/25/2017 6:35pm 2017 8:01pm Urine pH 5 5 - 7 09/25/2017 6:35pm 09/25/2017 8:01pm Urine Leukocyte Esterase TRACE H NEGATIVE 09/25/2017 6:35pm 2017 8:01pm Urine Nitrite POSITIVE H NEGATIVE 09/25/2017 6:35pm 09/25/2017 8:01pm Urine Protein NEGATIVE NEGATIVE 09/25/2017 6:35pm 09/25/2017 8:01pm Urine Glucose (UA) NEGATIVE NEGATIVE 09/25/2017 6:35pm 09/25/2017 8: 01pm Urine Ketones NEGATIVE NEGATIVE 09/25/2017 6:35pm 09/25/2017 8:01pm Urine Urobilinogen 0.2 mg/dL 0.2 - 1 09/25/2017 6:35pm 09/25/2017 8: 01pm Urine Bilirubin 1+ H NEGATIVE 09/25/2017 6:35pm 09/25/2017 8:01pm Urine Blood TRACE H NEGATIVE 09/25/2017 6:35pm 09/25/2017 8:01pm Urine WBC 6-10 /HPF H 0-5 09/25/2017 6:35pm 09/25/2017 8:15pm Urine RBC 6-10 /HPF H 0-5 09/25/2017 6:35pm 09/25/2017 8:15pm Urine Bacteria MANY /HPF H NONE 09/25/2017 6:35pm 09/25/2017 8:15pm Urine Epithelial Cells FEW /LPF NONE 09/25/2017 6:35pm 09/25/2017 8: 15pm Sodium Level 139 mmol/L 136-145 10/01/2017 5:53am 10/01/2017 7:07am Potassium Level 3.9 mmol/L 3.5-5.1 10/01/2017 5:53am 10/01/2017 7:07am Chloride Level 107 mmol/L 98-107 10/01/2017 5:53am 10/01/2017 7:07am Carbon Dioxide Level 24 mmol/L 22-29 10/01/2017 5:53am 10/01/2017 7: 07am Anion Gap 11.9 mmol/L 8-16 10/01/2017 5:53am 10/01/2017 7:07am Blood Urea Nitrogen 11 mg/dL 7-10/01/2017 5:53am 10/01/2017 7:07am Creatinine 0.90 mg/dL 0.57-1.11 10/01/2017 5:53am 10/01/2017 7:07am BUN/Creatinine Ratio 12 6-10/01/2017 5:53am 10/01/2017 7:07am Estimat Glomerular Filtration Rate > 60 ML/MIN 60- 10/01/2017 5:53am 7:07am Ranges were taken from the National Kidney Disease Education Program and the National [employer] literature. Reference ranges: 60 or greater: Normal 16-59 (for 3 consecutive months): Chronic kidney disease 15 or less: Kidney failure Glucose Level 97 mg/dL 74-118 10/01/2017 5:53am 10/01/2017 7:07am Calcium Level 9.2 mg/dL 8.4-10.2 10/01/2017 5:53am 10/01/2017 7:07am Bedside Glucose 132 mg/dL H 70-120 10/01/2017 3:48pm 10/01/2017 4:05pm Meter ID: [id number] Phosphorus Level 4.6 MG/DL 2.3-4.7 09/29/2017 5:54am 09/29/2017 7:11am Magnesium Level 2.0 MG/DL 1.3-2.1 10/01/2017 5:53am 10/01/2017 7:07am Iron Level 71 ug/dL 50-170 09/27/2017 6:10am 09/27/2017 7:38am Total Iron Binding Capacity 248 ug/dL L 261-478 09/27/2017 6:10am 2017 7:38am Percent Iron Saturation 29 % 15-50 09/27/2017 6:10am 09/27/2017 7:38am Transferrin 177 mg/dL L 180-382 09/27/2017 6:10am 09/27/2017 7:38am Total Bilirubin < 0.3 mg/dL 0.2-1.2 09/30/2017 5:57am 09/30/2017 7: 16am Aspartate Amino Transf (AST/SGOT) 12 IU/L 5-34 09/30/2017 5:57am 2017 7:16am Alanine Aminotransferase (ALT/SGPT) 7 IU/L 0-55 09/30/2017 5:57am 09/30 7:16am Total Protein 5.9 g/dL L 6.5-8.1 09/30/2017 5:57am 09/30/2017 7:16am Albumin 3.5 g/dL 3.5-5.0 09/30/2017 5:57am 09/30/2017 7:16am Globulin 2.4 g/dL 2.3-3.5 09/30/2017 5:57am 09/30/2017 7:16am Albumin/Globulin Ratio 1.5 0.8-2.0 09/30/2017 5:57am 09/30/2017 7: 16am Alkaline Phosphatase 36 IU/L L 40-150 09/30/2017 5:57am 09/30/2017 7: 16am B-Type Natriuretic Peptide 34.9 pg/mL 0-100 09/25/2017 4:00pm 2017 4:49pm Creatine Kinase 47 IU/L 29-168 09/25/2017 4:00pm 09/25/2017 4:49pm Creatine Kinase MB 0.90 ng/mL 0-5.0 09/25/2017 4:00pm 09/25/2017 5: 13pm Troponin I < 0.001 ng/mL 0-0.300 09/25/2017 4:00pm 09/25/2017 5:13pm Vitamin B12 Level 323 pg/mL 213-816 09/27/2017 6:10am 09/27/2017 8: 30am Folate 5.5 ng/mL L 7.0-15.4 09/27/2017 6:10am 09/27/2017 8:30am Thyroid Stimulating Hormone (TSH) 0.973 uIU/mL 0.350-4.940 09/25/2017 4: 00pm 09/25/2017 5:13pm Microbiology Results Procedure Source Organism/Result Collection Date/Time Result Date/Time Result Status Urine Culture Urine,Clean Catch KLEBSIELLA PNEUMONIAE 09/25/2017 6:35pm 6:58am Final Procedures Procedure Status Date Provider(s) EGD with biopsy Completed 09/27/17 HAWK HARTMANN MD EGD with biopsy Completed 09/27/17 HAWK HARTMANN MD Computed tomography of chest with contrast Active 09/25/17 KAREN NGO HOROLOGIST X-ray of chest, two views Active 09/25/17 KAREN NGO HOROLOGIST Computed tomography of soft tissues of neck with contrast Active 09/26/17 SHERRIE STOUT MD Ultrasound of soft tissue of head and neck Active 09/27/17 GRANT ROMAN Encounters Encounter Location Arrival/Admit Date Discharge/Depart Date Attending Provider Discharged Inpatient [facility] 09/26/17 11:54am 8:18pm SHERRIE STOUT MD
== END 2018-02-23 00:30 | disposition home or self-care (01) ==
LOC: ER 19:08
DX: R55 Syncope and collapse (principal); S63.512A Sprain of carpal joint of left wrist, initial encounter; S60.212A Contusion of left wrist, initial encounter; S40.012A Contusion of left shoulder, initial encounter; I10 Essential (primary) hypertension; J44.9 Chronic obstructive pulmonary disease, unspecified; E11.9 Type 2 diabetes mellitus without complications; E78.5 Hyperlipidemia, unspecified; Z79.899 Other long term (current) drug therapy; Z85.6 Personal history of leukemia; Z95.5 Presence of coronary angioplasty implant and graft; Z96.653 Presence of artificial knee joint, bilateral
CPT/HCPCS: 29125; 36415; 70450; 71045; 72125; 73030; 73110; 80053; 82550; 82553; 84484; 85025; 99284; J1644

== ENCOUNTER 2018-03-29 07:10 | Emergency (ER) | payer MEDICARE ==
[~2018-03-29] VITALS: Ht 160 cm; Wt 58.5 kg
[2018-03-29] MEDS ORDERED: MORPHINE SULFATE 2 MG/ML SYR IV STA (07:47)
[2018-03-29 08:04] LABS: BASOPHILS % 0.3 % (0.0-1.0); EOSINOPHILS # (AUTO) 0.1 (0.0-0.4); EOSINOPHILS % 1.9 % (0.0-6.0); HEMATOCRIT 40.6 % (34.2-44.1); HEMOGLOBIN 13.5 g/dL (12.0-16.0); LYMPHOCYTES % 17.2 % (18.0-39.1); MEAN CORPUSCULAR HEMOGLOBIN 31.2 pg (28-32); MEAN CORPUSCULAR HGB CONC 33.3 g/dL (31-35); MEAN CORPUSCULAR VOLUME 93.8 fL (81-99); MONOCYTES # (AUTO) 0.8 (0.2-0.8); MONOCYTES % 14.6 % (4.4-11.3); NEUTROPHILS # (AUTO) 3.7 (2.1-6.9); PLATELET COUNT 264 x10e3/uL (140-360); RED BLOOD COUNT 4.33 x10e6/uL (3.6-5.1)
--- NOTE | 2018-03-29 08:11 | Diagnostic Imaging Report ---
PROCEDURE: Frontal and lateral views of the chest. COMPARISON: [facility], , CHEST SINGLE (PORTABLE), 02/22/2018, 22:40. INDICATIONS: SHORTNESS OF BREATH, HIGH SODIUM LEVELS FINDINGS: Lines/tubes: Unchanged appearance/location of a right IJ chest port. Lungs: The lungs are well inflated and clear. There is no evidence of pneumonia or pulmonary edema. Pleura: There is no pleural effusion or pneumothorax. Heart and mediastinum: The heart and the mediastinum are normal. Calcification within the thoracic aorta. Bones: Mild degenerative changes of the spine. IMPRESSION: No acute cardiopulmonary disease. [place] D.O. Dictated by: [place] D.O. on 03/29/2018 at 8:19 Electronically approved by: [place] D.O. on 03/29/2018 at 8:19
[2018-03-29 08:25] LABS: ALBUMIN/GLOBULIN RATIO 1.3 (0.8-2.0); ANION GAP 16.5 mmol/L (8-16); CALCIUM 9.6 mg/dL (8.4-10.2); CREATININE, SERUM 1.08 mg/dL (0.57-1.11); POTASSIUM 3.5 mmol/L (3.5-5.1)
[2018-03-29 08:28] LABS: BILIRUBIN,URINE NEGATIVE (NEGATIVE); CLARITY,URINE CLEAR (CLEAR); COLOR,URINE YELLOW (YELLOW); KETONES,URINE NEGATIVE (NEGATIVE); LEUKOCYTE ESTERASE ,URINE 1+ (NEGATIVE); NITRITE,URINE NEGATIVE (NEGATIVE); PROTEIN,URINE DIPSTICK NEGATIVE (NEGATIVE); URINE UROBILINOGEN 0.2 mg/dL (0.2 - 1)
[2018-03-29 08:46] LABS: BACTERIA,URINE RARE /HPF; EPITHELIAL CELLS,URINE FEW /LPF; RBC,URINE 0-5 /HPF (0-5); TRANSITIONAL EPI CELLS,URINE RARE
[2018-03-29 09:16] VITALS: BP 104/73
[2018-03-29] MEDS ORDERED: KETOROLAC TROMETHAMINE 30 MG/ML VIAL IV ONE (09:30)
== END 2018-03-29 09:25 | disposition home or self-care (01) ==
LOC: ER 07:10
DX: R51 Headache (principal); R53.1 Weakness; E11.65 Type 2 diabetes mellitus with hyperglycemia; C91.10 Chronic lymphocytic leukemia of B-cell type not having achieved remission; I10 Essential (primary) hypertension; J44.9 Chronic obstructive pulmonary disease, unspecified; E78.5 Hyperlipidemia, unspecified; I25.2 Old myocardial infarction; F17.210 Nicotine dependence, cigarettes, uncomplicated
CPT/HCPCS: 36415; 71046; 80053; 81001; 85025; 93005; 99283; J1885; J2270

== ENCOUNTER 2018-04-04 11:39 | Inpatient (IN) | payer MEDICARE, OTHER ==
[~2018-04-04] VITALS: Ht 160 cm; Wt 60.0 kg
[2018-04-04] MEDS ORDERED: FAMOTIDINE 20 MG/2 ML VIAL IV STA (12:14)
[2018-04-04] MEDS ORDERED: MORPHINE SULFATE INJ 4 MG/ML INJ IV STA (12:14)
[2018-04-04] MEDS ORDERED: SODIUM CHLORIDE 0.9% 500ML 500 ML IV STA (12:14)
[2018-04-04] MEDS ORDERED: ONDANSETRON HCL INJ 2 MG/ML VIAL IV STA (12:14)
[2018-04-04 12:41] LABS: BASOPHILS # (AUTO) 0.1 (0.0-0.1); BASOPHILS % 0.3 % (0.0-1.0); HEMATOCRIT 38.7 % (34.2-44.1); HEMOGLOBIN 13.5 g/dL (12.0-16.0); LYMPHOCYTES # (AUTO) 0.6 (1.0-3.2); LYMPHOCYTES % 3.1 % (18.0-39.1); MEAN CORPUSCULAR HGB CONC 34.9 g/dL (31-35); MONOCYTES # (AUTO) 0.4 (0.2-0.8); MONOCYTES % 2.3 % (4.4-11.3); NEUTROPHILS # (AUTO) 16.5 (2.1-6.9); NEUTROPHILS % 92.9 % (38.7-80.0); PLATELET COUNT 350 x10e3/uL (140-360); RED BLOOD COUNT 4.35 x10e6/uL (3.6-5.1); RED CELL DISTRIBUTION WIDTH 12.6 % (11.7-14.4)
[2018-04-04 12:53] LABS: INR 0.86; PARTIAL THROMBOPLASTIN TIME 21.8 seconds (23.8-35.5); PROTHROMBIN TIME 12.5 seconds (11.9-14.5)
[2018-04-04 13:01] LABS: ALANINE AMINOTRANSFERASE 14 IU/L (0-55); ALBUMIN 4.1 g/dL (3.5-5.0); ALBUMIN/GLOBULIN RATIO 1.4 (0.8-2.0); ALKALINE PHOSPHATASE 102 IU/L (40-150); AMYLASE 60 U/L (25-125); BLOOD UREA NITROGEN 14 mg/dL (7-26); BUN/CREATININE RATIO 14 (6-25); CALCIUM 9.2 mg/dL (8.4-10.2); CARBON DIOXIDE 21 mmol/L (22-29); CHLORIDE 104 mmol/L (98-107); CREATINE KINASE 23 IU/L (29-168); CREATININE, SERUM 0.98 mg/dL (0.57-1.11); EST GLOMERULAR FILTRATION RATE 57 ML/MIN (60-); GLUCOSE 175 mg/dL (74-118); LIPASE 97 U/L (8-78); SODIUM 137 mmol/L (136-145)
[2018-04-04] MEDS ORDERED: MORPHINE SULFATE INJ 4 MG/ML INJ IV PRN (13:15)
--- NOTE | 2018-04-04 13:51 | Diagnostic Imaging Report ---
Examination: Single AP view of the chest. COMPARISON: 02/22/2018 INDICATION: Nausea, vomiting, diarrhea DISCUSSION: Right internal jugular central venous port catheter is unchanged in position. The tip projects over the superior cavoatrial junction. Lungs remain well-inflated and without consolidation, pleural effusion, or pneumothorax. Atherosclerotic calcification of the thoracic aorta with otherwise normal heart size. No pulmonary edema. No acute osseous abnormality. IMPRESSION: 1. No acute cardiopulmonary abnormalities. Signed by: Dr. Sylvester Vargas M.D. on 04/04/2018 1:48 PM
[2018-04-04] MEDS ORDERED: HYDROMORPHONE 1MG/1ML INJ IV STA (14:07)
[2018-04-04] MEDS ORDERED: HYDROMORPHONE 2MG/ML 2 MG/ML ML IV ONE (14:15)
--- NOTE | 2018-04-04 15:37 | Diagnostic Imaging Report ---
EXAMINATION: CT of the abdomen and pelvis without contrast. TECHNIQUE: Spiral CT images of the abdomen and pelvis were performed from the lung bases to the lesser trochanters. No intravenous contrast was given due to iodine allergy. Oral contrast was administered. Coronal and sagittal reformatted images were available for review. COMPARISON: None available CLINICAL HISTORY:Abdominal pain, history of gastroesophageal reflux, history of CLL DISCUSSION: ABSENCE OF INTRAVENOUS CONTRAST DECREASES SENSITIVITY FOR DETECTION OF FOCAL LESIONS AND VASCULAR PATHOLOGY. ABDOMEN/PELVIS: LOWER THORAX: Unremarkable. HEPATOBILIARY:No focal hepatic lesion or intrahepatic biliary ductal dilatation. The gallbladder has been removed. SPLEEN: No splenomegaly. PANCREAS: No focal masses or ductal dilatation. ADRENALS: No adrenal nodules. KIDNEYS/URETERS: Punctate nonobstructing calculus in the lower pole of the left kidney (series 2 image 31). No additional renal calculi. No hydronephrosis. No gross renal mass lesion. PELVIC ORGANS/BLADDER: The urinary bladder is unremarkable. Uterus is not identified and has presumably been removed. No adnexal mass. PERITONEUM/RETROPERITONEUM: No ascites. No pneumoperitoneum. LYMPH NODES: No pelvic sidewall, retroperitoneal, or mesenteric lymphadenopathy. VESSELS: Atherosclerotic calcification of the abdominal aorta, major branch vessels, and iliac arterial systems, without aneurysmal dilatation. Otherwise limited evaluation in the absence of intravenous contrast. GI TRACT: The large bowel shows no evidence of distention or wall thickening. There are a few diverticula scattered along the sigmoid colon without wall thickening or adjacent inflammatory change. The majority of the colon is collapsed and poorly evaluated. The appendix is normal. There is no small bowel dilatation to suggest obstruction. BONES AND SOFT TISSUES: No focal soft tissue abnormalities. No osseous destructive lesions. Degenerative disc changes and degenerative facet arthropathy of the lumbar spine. IMPRESSION: No acute intra-abdominal or pelvic CT abnormalities. Punctate nonobstructing left lower pole renal calculus. Sigmoid diverticulosis without evidence of diverticulitis. Atherosclerotic vascular disease. Signed by: Dr. Sylvester Vargas M.D. on 04/04/2018 3:33 PM
[2018-04-04 17:01] LABS: BILIRUBIN,URINE NEGATIVE (NEGATIVE); CLARITY,URINE CLEAR (CLEAR); COLOR,URINE YELLOW (YELLOW); KETONES,URINE NEGATIVE (NEGATIVE); LEUKOCYTE ESTERASE ,URINE NEGATIVE (NEGATIVE); NITRITE,URINE NEGATIVE (NEGATIVE); PROTEIN,URINE DIPSTICK NEGATIVE (NEGATIVE); URINE UROBILINOGEN 0.2 mg/dL (0.2 - 1)
[2018-04-04 17:13] LABS: BACTERIA,URINE RARE /HPF; EPITHELIAL CELLS,URINE RARE /LPF; RBC,URINE 0-5 /HPF (0-5); WBC,URINE (MAN) 0-5 /HPF (0-5)
[2018-04-04] MEDS ORDERED: PROMETHAZINE 12.5MG/ NACL 0.9% 12.5 MG/50 ML BAG IV PRN (17:30)
[2018-04-04] MEDS: CEFTRIAXONE SOD 1 GM VIAL IV SCH ×2 (17:49→18:38)
[2018-04-04] MEDS: MORPHINE SULFATE 2 MG/ML SYR IV PRN ×2 (18:38→22:38)
[2018-04-04] MEDS: SODIUM CHLORIDE 0.9% 1000ML 1,000 ML IV SCH (19:27)
[2018-04-04 20:29] VITALS: BP 139/81
[2018-04-04 20:40] VITALS: BP 139/81
[2018-04-04 22:34] LABS: CREATINE KINASE 23 IU/L (29-168)
[2018-04-05] VITALS (8 sets, daily range): BP systolic 124–167; BP diastolic 62–77
[2018-04-05] MEDS: MORPHINE SULFATE 2 MG/ML SYR IV PRN ×6 (02:45→23:10)
[2018-04-05] MEDS: SODIUM CHLORIDE 0.9% 1000ML 1,000 ML IV SCH ×3 (02:54→19:03)
[2018-04-05] MEDS: CEFTRIAXONE SOD 1 GM VIAL IV SCH ×2 (05:05→16:43)
[2018-04-05 05:06] LABS: BASOPHILS % 0.5 % (0.0-1.0); EOSINOPHILS % 0.5 % (0.0-6.0); LYMPHOCYTES # (AUTO) 0.6 (1.0-3.2); MEAN CORPUSCULAR HEMOGLOBIN 31.1 pg (28-32); MEAN CORPUSCULAR HGB CONC 34.4 g/dL (31-35); MEAN CORPUSCULAR VOLUME 90.4 fL (81-99); MONOCYTES # (AUTO) 0.5 (0.2-0.8); NEUTROPHILS # (AUTO) 4.7 (2.1-6.9); NEUTROPHILS % 80.2 % (38.7-80.0); PLATELET COUNT 249 x10e3/uL (140-360); RED BLOOD COUNT 3.54 x10e6/uL (3.6-5.1); RED CELL DISTRIBUTION WIDTH 12.9 % (11.7-14.4)
[2018-04-05 05:29] LABS: ANION GAP 13.8 mmol/L (8-16); BLOOD UREA NITROGEN 12 mg/dL (7-26); BUN/CREATININE RATIO 14 (6-25); CALCIUM 8.8 mg/dL (8.4-10.2); CARBON DIOXIDE 20 mmol/L (22-29); CHLORIDE 109 mmol/L (98-107); CREATINE KINASE 22 IU/L (29-168); CREATININE, SERUM 0.86 mg/dL (0.57-1.11); EST GLOMERULAR FILTRATION RATE > 60 ML/MIN (60-); GLUCOSE 97 mg/dL (74-118); POTASSIUM 3.8 mmol/L (3.5-5.1); SODIUM 139 mmol/L (136-145)
--- NOTE | 2018-04-05 06:40 | Diagnostic Imaging Report ---
EXAMINATION: CHEST SINGLE (PORTABLE) INDICATION: Abdominal pain, nausea, vomiting COMPARISON: 04/04/2018 FINDINGS: TUBES and LINES: Right chest port in good position LUNGS: Lungs are well inflated. Lungs are clear. There is no evidence of pneumonia or pulmonary edema. PLEURA: No pleural effusion or pneumothorax. HEART AND MEDIASTINUM: The cardiomediastinal silhouette is unremarkable. BONES AND SOFT TISSUES: No acute osseous lesion. Soft tissues are unremarkable. UPPER ABDOMEN: No free air under the diaphragm. IMPRESSION: No acute thoracic abnormality. Signed by: Dr. James Boyle M.D. on 04/05/2018 6:37 AM
[2018-04-05] MEDS: ONDANSETRON HCL INJ 2 MG/ML VIAL IV PRN ×4 (10:59→23:10)
[2018-04-05] MEDS ORDERED: POLYETHYLENE GLYCOL 3350 17 GM PACK PO PRN (19:45)
[2018-04-05] MEDS ORDERED: NITROGLYCERIN 0.4 MG SUBL SL SCH (19:45)
[2018-04-05] MEDS: ATORVASTATIN 40 MG TAB PO SCH (20:30)
[2018-04-05] MEDS: DICYCLOMINE HCL 20 MG TAB PO SCH (20:30)
[2018-04-05] MEDS ORDERED: ATORVASTATIN 40 MG PO SCH (21:00)
[2018-04-05] MEDS: INSULIN REGULAR, HUMAN 100 UNIT/1 ML 3ML VIAL SQ SCH (21:00)
[2018-04-05] MEDS ORDERED: ALBUTEROL/IPRATROPIUM 3 ML NEB NEB PRN (21:00)
[2018-04-05] MEDS ORDERED: FENTANYL 50 MCG/HR PATCH TOP SCH (21:00)
[2018-04-06] VITALS (7 sets, daily range): BP systolic 98–161; BP diastolic 54–71
[2018-04-06] MEDS: SODIUM CHLORIDE 0.9% 1000ML 1,000 ML IV SCH ×4 (03:00→22:46)
[2018-04-06] MEDS: ONDANSETRON HCL INJ 2 MG/ML VIAL IV PRN ×3 (03:15→12:48)
[2018-04-06] MEDS: MORPHINE SULFATE 2 MG/ML SYR IV PRN ×2 (03:15→07:15)
[2018-04-06 05:22] LABS: BASOPHILS % 0.5 % (0.0-1.0); EOSINOPHILS # (AUTO) 0.1 (0.0-0.4); EOSINOPHILS % 1.9 % (0.0-6.0); HEMATOCRIT 30.7 % (34.2-44.1); HEMOGLOBIN 10.5 g/dL (12.0-16.0); LYMPHOCYTES # (AUTO) 0.5 (1.0-3.2); LYMPHOCYTES % 13.6 % (18.0-39.1); MEAN CORPUSCULAR HEMOGLOBIN 31.4 pg (28-32); MEAN CORPUSCULAR HGB CONC 34.2 g/dL (31-35); MEAN CORPUSCULAR VOLUME 91.9 fL (81-99); MONOCYTES # (AUTO) 0.4 (0.2-0.8); MONOCYTES % 10.9 % (4.4-11.3); NEUTROPHILS # (AUTO) 2.7 (2.1-6.9); NEUTROPHILS % 72.6 % (38.7-80.0); PLATELET COUNT 197 x10e3/uL (140-360); RED BLOOD COUNT 3.34 x10e6/uL (3.6-5.1); RED CELL DISTRIBUTION WIDTH 12.4 % (11.7-14.4)
[2018-04-06 05:47] LABS: ANION GAP 10.7 mmol/L (8-16); BLOOD UREA NITROGEN 12 mg/dL (7-26); BUN/CREATININE RATIO 14 (6-25); CALCIUM 8.5 mg/dL (8.4-10.2); CARBON DIOXIDE 22 mmol/L (22-29); CHLORIDE 110 mmol/L (98-107); CREATININE, SERUM 0.88 mg/dL (0.57-1.11); EST GLOMERULAR FILTRATION RATE > 60 ML/MIN (60-); GLUCOSE 86 mg/dL (74-118); MAGNESIUM 1.8 MG/DL (1.3-2.1); PHOSPHORUS 4.5 MG/DL (2.3-4.7); POTASSIUM 3.7 mmol/L (3.5-5.1); SODIUM 139 mmol/L (136-145)
[2018-04-06] MEDS: CEFTRIAXONE SOD 1 GM VIAL IV SCH ×2 (06:25→18:17)
[2018-04-06] MEDS: LEVOTHYROXINE SODIUM 75 MCG TAB PO SCH (06:25)
[2018-04-06] MEDS: BUDESONIDE/FORMOTEROL 160/4.5MCG INHALER INH SCH (07:00)
[2018-04-06] MEDS: INSULIN REGULAR, HUMAN 100 UNIT/1 ML 3ML VIAL SQ SCH ×4 (07:30→20:43)
[2018-04-06] MEDS: STIOLTO RESPIMAT INH SCH (09:00)
[2018-04-06] MEDS: DICYCLOMINE HCL 20 MG TAB PO SCH ×3 (09:00→20:11)
[2018-04-06] MEDS: ASCORBIC ACID 500 MG TAB PO SCH ×2 (09:00→18:16)
[2018-04-06] MEDS: TOPIRAMATE 100 MG TAB PO SCH ×2 (09:00→18:17)
[2018-04-06] MEDS ORDERED: VENLAFAXINE HCL 37.5 MG PO SCH (09:00)
[2018-04-06] MEDS: PANTOPRAZOLE SOD 40 MG TABEC PO SCH ×2 (09:00→18:16)
[2018-04-06] MEDS ORDERED: TIOTROPIUM 18 MCG INH POWDER INH SCH (09:00)
[2018-04-06] MEDS: RANOLAZINE 500 MG TABSR PO SCH ×2 (09:00→17:00)
[2018-04-06] MEDS: MORPHINE SULFATE INJ 4 MG/ML INJ IV PRN ×2 (12:48→20:21)
[2018-04-06] MEDS ORDERED: FENTANYL CITRATE/PF 100MCG/2 ML INJ ONE (14:52)
[2018-04-06] MEDS: VENLAFAXINE HCL 37.5MG XR CAP PO SCH (18:16)
[2018-04-06] MEDS: ATORVASTATIN 40 MG TAB PO SCH (20:11)
[2018-04-07] VITALS: BP 116/57
[2018-04-07] MEDS: MORPHINE SULFATE INJ 4 MG/ML INJ IV PRN ×4 (01:43→15:43)
[2018-04-07 01:47] LABS: WBC,FECAL (FECAL LACTOFERRIN) NEGATIVE (NEGATIVE)
[2018-04-07 04:00] VITALS: BP 133/66
[2018-04-07 05:01] LABS: BASOPHILS % 0.2 % (0.0-1.0); EOSINOPHILS # (AUTO) 0.2 (0.0-0.4); EOSINOPHILS % 4.4 % (0.0-6.0); HEMATOCRIT 30.7 % (34.2-44.1); HEMOGLOBIN 10.5 g/dL (12.0-16.0); LYMPHOCYTES # (AUTO) 0.6 (1.0-3.2); LYMPHOCYTES % 13.4 % (18.0-39.1); MEAN CORPUSCULAR HEMOGLOBIN 31.3 pg (28-32); MEAN CORPUSCULAR HGB CONC 34.2 g/dL (31-35); MEAN CORPUSCULAR VOLUME 91.4 fL (81-99); MONOCYTES # (AUTO) 0.4 (0.2-0.8); MONOCYTES % 10.7 % (4.4-11.3); NEUTROPHILS # (AUTO) 2.9 (2.1-6.9); NEUTROPHILS % 70.8 % (38.7-80.0); PLATELET COUNT 200 x10e3/uL (140-360); RED BLOOD COUNT 3.36 x10e6/uL (3.6-5.1); RED CELL DISTRIBUTION WIDTH 12.6 % (11.7-14.4)
[2018-04-07] MEDS: LEVOTHYROXINE SODIUM 75 MCG TAB PO SCH (05:08)
[2018-04-07] MEDS: CEFTRIAXONE SOD 1 GM VIAL IV SCH ×2 (05:08→17:30)
[2018-04-07 05:30] LABS: ANION GAP 11.8 mmol/L (8-16); CALCIUM 8.4 mg/dL (8.4-10.2); CREATININE, SERUM 0.93 mg/dL (0.57-1.11); MAGNESIUM 1.8 MG/DL (1.3-2.1); POTASSIUM 3.8 mmol/L (3.5-5.1)
[2018-04-07 05:59] LABS: FERRITIN 32.69 ng/mL (4.63-204.00); FREE T4 (FREE THYROXINE) 1.15 ng/dL (0.9-1.8); THYROID STIMULATING HORMONE 0.532 uIU/mL (0.350-4.940)
[2018-04-07] MEDS: BUDESONIDE/FORMOTEROL 160/4.5MCG INHALER INH SCH (06:00)
[2018-04-07 06:27] LABS: FOLATE 15.6 ng/mL (7.0-15.4)
[2018-04-07] MEDS: INSULIN REGULAR, HUMAN 100 UNIT/1 ML 3ML VIAL SQ SCH ×3 (07:30→16:30)
[2018-04-07 07:38] VITALS: BP 124/59
[2018-04-07] MEDS: VENLAFAXINE HCL 37.5MG XR CAP PO SCH (07:49)
[2018-04-07] MEDS: DICYCLOMINE HCL 20 MG TAB PO SCH ×2 (07:49→15:44)
[2018-04-07] MEDS: ASCORBIC ACID 500 MG TAB PO SCH ×2 (07:49→17:00)
[2018-04-07] MEDS: PANTOPRAZOLE SOD 40 MG TABEC PO SCH ×2 (07:49→17:00)
[2018-04-07] MEDS: TOPIRAMATE 100 MG TAB PO SCH ×2 (07:49→17:00)
[2018-04-07] MEDS: RANOLAZINE 500 MG TABSR PO SCH ×2 (07:50→17:00)
[2018-04-07] MEDS ORDERED: CEFTIN PO (08:58)
[2018-04-07] MEDS: STIOLTO RESPIMAT INH SCH (09:00)
--- NOTE | 2018-04-07 09:17 | Operative Report ---
DATE OF PROCEDURE: April 06, 2018 PROCEDURE PERFORMED: Esophagogastroduodenoscopy with esophageal dilatation and biopsies. REFERRING PHYSICIAN: Dr. Sherrie Mcmahon INDICATIONS FOR PROCEDURE: Dysphagia to solids. MEDICATION: Patient was done under MAC. Please see anesthesiologist note. PROCEDURE IN DETAIL: With the patient in left lateral decubitus position, flexible fiberoptic Olympus gastroscope was introduced into the esophagus under direct visualization without any difficulty. There were some patchy areas of erythema noted in distal esophagus. A grade 1 esophageal varix was noted in the esophagus without active bleeding or stigmata of recent hemorrhage. There was a mild stricture noted at the GE junction that was dilated to size 52-Wallisian Young. There was some focal nodularity noted at the GE junction that was biopsied. The scope was then advanced with ease into the stomach. Mucosa overlying the antrum and the body revealed some patchy erythema and mild to moderate edema, and biopsies were obtained and sent to stain for H. pylori. Pylorus appeared to be of normal contour and shape. It was intubated with ease and the scope was advanced all the way to the second portion of the duodenum. The scope was then withdrawn slowly. Mucosa overlying the proximal second portion and the duodenal bulb appeared to be within normal limits. The scope was then withdrawn back into the stomach and retroflexed, and the mucosa overlying the fundus and the cardia appeared to be within normal limits. The scope was then straightened out. The stomach was decompressed. The scope was subsequently withdrawn. Patient tolerated the procedure well. IMPRESSION: 1. Distal esophagitis, mild. 2. Grade 1 esophageal varix without active bleeding or stigmata of recent hemorrhage. 3. Esophageal stricture, gastroesophageal junction, dilated to size 52-Wallisian Young. Focal nodularity, gastroesophageal junction, biopsied. 4. Gastritis, biopsied. Biopsy sent to stain for Helicobacter pylori. PLAN: Follow up histology. Plan as ordered. Job#: [id number] cc:SHERRIE MCMAHON MD
[2018-04-07 11:33] VITALS: BP 106/57
[2018-04-07 12:18] VITALS: BP 106/57
[2018-04-07 14:40] LABS: C DIFFICILE TOXIN A&B AMP PROB NEGATIVE (NEGATIVE)
[2018-04-07] MEDS: ONDANSETRON HCL INJ 2 MG/ML VIAL IV PRN (15:43)
--- NOTE | 2018-04-07 18:31 | Discharge Summary ---
ADMITTING DIAGNOSES 1. Acute gastroenteritis. 2. Severe generalized abdominal pain. 3. Severe nausea and vomiting. 4. Recent rule out Clostridium difficile colitis. 5. Leukocytosis. 6. Dehydration with headache and dizziness. 7. Diverticulosis without diverticulitis. 8. Chronic dysphagia. 9. History of esophageal stricture with previous dilations by gastroenterology. 10. Urinary tract infection with gram-negative bacillus. 11. Chronic pain. 12. Chronic obstructive pulmonary disease with nonproductive cough. 13. Hypertension complicated by coronary artery disease. 14. Type-2 diabetes. 15. Hypothyroidism. 16. Nicotine dependence. 17. Depression. 18. Sinus bradycardia. 19. Nonobstructing renal calculus. 20. Debility. DISCHARGE DIAGNOSES 1. Acute gastroenteritis. 2. Severe generalized abdominal pain. 3. Severe nausea and vomiting. 4. Recent rule out Clostridium difficile colitis. 5. Leukocytosis. 6. Dehydration with headache and dizziness. 7. Diverticulosis without diverticulitis. 8. Chronic dysphagia. 9. History of esophageal stricture with previous dilations by gastroenterology. 10. Urinary tract infection with gram-negative bacillus. 11. Chronic pain. 12. Chronic obstructive pulmonary disease with nonproductive cough. 13. Hypertension complicated by coronary artery disease. 14. Type-2 diabetes. 15. Hypothyroidism. 16. Nicotine dependence. 17. Depression. 18. Sinus bradycardia. 19. Nonobstructing renal calculus. 20. Debility. 21. Rule out Clostridium difficile. HISTORY: The patient has a history of COPD, asthma, bronchitis, GERD, dysphagia with esophageal stricture and previous dilatation by GI, hypertension, type-2 diabetes, hypothyroidism, CAD, bone marrow biopsy, right neck mass, UTI, CLL with chemo q. Wednesday and , chronic pain, active smoker, depression. Surgical history of bilateral feet surgery, bilateral hand surgery, titanium knees, hysterectomy, finger surgery, cholecystectomy, colon polyps. Family history of heart disease and high blood pressure in mother. Colon cancer with Mom. [place] and diabetes with the father. Social history: The patient is a 1 pack per day smoker for 58 years with mild marijuana use. HOSPITAL COURSE: This 67-year-old female was seen in the ER and diagnosed with abdominal pain and moderate leukocytosis. The patient was initially altered mentally, so the HPI had to be pulled from the ER record. Abdominal pain started on 04/03/2018, rated 10/10 at its worst with nausea, vomiting, diarrhea and loss of appetite x1 day. She says she vomited 20 times, multiple episodes of diarrhea. On admission, the patient had a chest x-ray which was negative. CT of the abdomen showed no acute intra-abdominal or pelvic abnormalities. Nonobstructing left lower pole renal calculus. Diverticulosis without evidence of diverticulitis. The patient had a urine culture that was positive for klebsiella. Blood cultures were negative. Stool cultures were pending. C. diff was negative. On admission, lipase was 97. The patient was started on IV antibiotics and IV fluids. The patient had an EGD that showed gastritis and esophagitis and stricture of the GE junction. The patient also had an esophageal dilatation per GI. She then had a bedside swallow eval, which was negative for aspiration. The patient is feeling much better and is ready to discharge home. She will resume home medicines and start Ceftin 500 b.i.d. x5 days for the UTI. She will follow up with primary care in 1 to 2 weeks. The patient understands the discharge instructions and agrees to the plan. She is feeling much better, tolerating a diet, and no longer having diarrhea. Vital signs are stable. The patient is afebrile. Dictated by Luz Turcios NP. SHERRIE STOUT MD Job#: [id number]
[2018-04-07] MEDS ORDERED: LIDOCAINE HCL 2% LOCAL INJ 5 ML SDV VIAL INJ ONE (19:00)
[2018-04-07] MEDS ORDERED: PROPOFOL IV EMULSION 10 MG/ML 50 ML VIAL ONE (19:00)
== END 2018-04-07 18:45 | disposition home or self-care (01) | DRG 392 ==
LOC: ER 11:39 → ERHOLD 17:44 → IMCU 20:03 → OBSVTOIN 04-07 08:45
PROVIDERS: ADMIT Internal Medicine; ATTEND Internal Medicine
PROC: 0D748ZZ Dilation of Esophagogastric Junction, Via Natural or Artificial Opening Endoscopic (ICD-10-PCS; principal; 2018-04-07)
PROC: 0DB38ZX Excision of Lower Esophagus, Via Natural or Artificial Opening Endoscopic, Diagnostic (ICD-10-PCS; 2018-04-07)
PROC: 0DB78ZX Excision of Stomach, Pylorus, Via Natural or Artificial Opening Endoscopic, Diagnostic (ICD-10-PCS; 2018-04-07)
DX: K52.9 Noninfective gastroenteritis and colitis, unspecified (principal); C91.10 Chronic lymphocytic leukemia of B-cell type not having achieved remission; I85.00 Esophageal varices without bleeding; N39.0 Urinary tract infection, site not specified; K21.0 Gastro-esophageal reflux disease with esophagitis; K29.70 Gastritis, unspecified, without bleeding; K22.2 Esophageal obstruction; K57.30 Diverticulosis of large intestine without perforation or abscess without bleeding; E86.0 Dehydration; B96.1 Klebsiella pneumoniae [K. pneumoniae] as the cause of diseases classified elsewhere; I10 Essential (primary) hypertension; I25.10 Atherosclerotic heart disease of native coronary artery without angina pectoris; E11.9 Type 2 diabetes mellitus without complications; E03.9 Hypothyroidism, unspecified; R53.81 Other malaise; D64.9 Anemia, unspecified; J44.9 Chronic obstructive pulmonary disease, unspecified; G89.29 Other chronic pain; F17.200 Nicotine dependence, unspecified, uncomplicated; F32.9 Major depressive disorder, single episode, unspecified; R00.1 Bradycardia, unspecified; N20.0 Calculus of kidney
CPT/HCPCS: 36415; 43239; 43450; 71045; 74176; 80048; 80053; 81001; 82150; 82270; 82550; 82553; 82607; 82728; 82746; 82948; 83036; 83540; 83630; 83690; 83735; 83993; 84100; 84439; 84443; 84466; 84484; 85025; 85610; 85730; 87040; 87045; 87086; 87177; 87186; 87493; 88305; 88312; 93005; 93306; 94640; 96360; 96361; 99284; G0378; J0696; J2001; J2270; J2405; J7030; J7040